=== PATIENT | male | born 1990 | race Caucasian/White ===

== ENCOUNTER 2020-06-18 21:26 | Emergency (ER) | payer OTHER, SELFPAY ==
--- NOTE | 2020-06-18 | ECG_ITS ---
Test Reason : HEART PALPATIONS Blood Pressure : / mmHG Vent. Rate : 083 BPM Atrial Rate : 083 BPM P-R Int : 124 ms QRS Dur : 084 ms QT Int : 374 ms P-R-T Axes : 018 004 011 degrees QTc Int : 439 ms Normal sinus rhythm Normal ECG When compared with ECG of 19-AUG-2019 19:44, Heart rate has decreased Referred By: Kallie Mckeon Electronically Signed By:ARLEEN VIZCAINO MD
[2020-06-18 21:33] VITALS: BP 144/89; PULSE 90; RESP 18; TEMP 36.9; O2SAT 99; BMI 30.1
--- NOTE | 2020-06-18 21:50 | XR_ITS ---
EXAMINATION: XR CHEST CLINICAL INFORMATION: Palpitations COMPARISON: Chest x-ray 10/20/2019 TECHNIQUE: Frontal view of the chest was obtained. FINDINGS: Cardiac silhouette is normal in size. Lungs are well aerated. There is no lobar consolidation. No pleural effusion or pneumothorax. XR/XR chest 1V IMPRESSION: Stable examination demonstrating no acute pulmonary pathology.
--- NOTE | 2020-06-18 21:57 | PC.NURSE ---
XRay at bedside.
--- NOTE | 2020-06-18 22:10 | PC.NURSE ---
Pt ambulating from the waiting room into room 7 with a olmstead/steady gait. Pt is awake and alert, reports difficulty speaking at baseline due to a history of TIAs. Pt explains that he has been having chest discomfort for 2 days, pt stating to this RN that it feels like its in his throat. 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 Pt also reporting dizziness and ear problems that cause him to have an unsteady gait. NSR on tele at this time. IV established, labs obtained and sent. Pt aware of plan of care to CT head and await lab results.
--- NOTE | 2020-06-18 22:10 | PC.NURSE ---
at bedside. IV established, labs obtained. IVF hung per verbal order by .
--- NOTE | 2020-06-18 22:13 | CT_ITS ---
EXAMINATION: CT HEAD WITHOUT CONTRAST CLINICAL INFORMATION: Dizziness COMPARISON: None TECHNIQUE: Contiguous axial imaging was performed from the skull base to vertex without intravenous administration of contrast. This CT examination was performed using dose optimization techniques as appropriate, variously including the following: *Automated exposure control *Adjustment of mA and/or kV according to patient size (this includes techniques or standardized protocols for targeted exams where dose is matched to indication/reason for exam; i.e. extremities or head) *Use of iterative reconstruction technique DLP: 751 mGy-cm FINDINGS: There is no evidence of acute intracranial hemorrhage or territorial infarction. No abnormal mass effect or midline shift is seen. Roy to white matter differentiation is well preserved. No extra-axial fluid collections are identified. The ventricles are normal in size. There is no abnormal attenuation within the brain parenchyma. The osseous structures and soft tissues are normal. Mild polypoid mucosal disease of the right maxillary sinus. CT/CT head/brain wo con IMPRESSION: No acute intracranial pathology.
[2020-06-18 22:17] LABS: Basophils Absolute Auto 0.1 X10*3/uL (0.0-0.2); Basophils Percent Auto 0.7 % (0-2); Eosinophils Absolute Auto 0.2 X10*3/uL (0.0-0.4); Eosinophils Percent Auto 2.3 % (0-4); Hematocrit 44.4 % (42-52); Hemoglobin 14.5 g/dl (14.0-18.0); Imm Gran Abs Auto 0.02 X10*3/uL (0.00-0.03); Imm Gran Pct Auto 0.2 % (0.0-0.4); Lymphocytes Percent Auto 34.4 % (20-40); MANUAL DIFF FLAG NO; Mean Corpuscular HGB Conc 32.7 g/dl (31.0-36.0); Mean Corpuscular Hemoglobin 27.7 pg (27.0-33.0); Mean Corpuscular Volume 84.9 fL (80-98); Mean Platelet Volume 8.9 fL (9.4-12.4); Monocytes Absolute Auto 0.6 X10*3/uL (0.1-1.2); Neutrophils Absolute Auto 4.8 X10*3/uL (2.0-8.3); Neutrophils Percent Auto 55.4 % (45-73); Platelet Count 342 X10*3/uL (160-400); Red Blood Count 5.23 X10*6/uL (4.60-5.80); White Blood Count 8.7 X10*3/uL (4.8-10.8)
[2020-06-18 22:46] LABS: Alanine Aminotransferase 20 U/L (0-40); Albumin Level 4.3 g/dL (3.5-5.0); Alkaline Phosphatase 64 U/L (39-117); Anion Gap 11 (12-20); Aspartate Amino Transferase 25 U/L (5-37); Bilirubin Direct 0.2 mg/dL (0.0-0.5); Bilirubin Total 0.5 mg/dL (0.0-1.0); Blood Urea Nitrogen 9 mg/dL (9-16); Calcium 8.9 mg/dL (8.4-10.2); Carbon Dioxide 30 mmol/L (22-29); Chloride 102 mmol/L (96-108); Creatinine Clr Calc Pharmacy 122.3; Estimated Glomerular Filt Rate > 60; Glucose Random 92 mg/dL (60-115); Lipase 23 U/L (8-78); Potassium 3.8 mmol/l (3.3-5.1); Sodium 139 mmol/L (135-145); Total Protein 7.1 g/dL (6.5-8.0)
[2020-06-18 22:51] LABS: Troponin-I High Sensitivity < 3.5 ng/L (<3.5-35.0)
[2020-06-18 23:13] VITALS: BP 124/71; PULSE 74; RESP 16; O2SAT 100
--- NOTE | 2020-06-19 00:40 | PC.NURSE ---
MD at bedside discussing plan for DC. IV removed, VSS. Awaiting paperwork.
[2020-06-19 00:43] VITALS: BP 141/86; PULSE 62; RESP 16
--- NOTE | 2020-06-19 00:44 | ED.ARRPALP ---
HPI - Arrhythmia/Palpitations General Chief Complaint: Arrhythmia/Palpitations Stated Complaint: Palpitations Time Seen by Provider: 06/18/20 21:50 Source: patient Mode of arrival: ambulatory Limitations: no limitations History of Present Illness HPI narrative: Patient presented with history of feeling palpitation, feeling dizzy, started earlier in the day, patient reported that symptoms has resolved now, describes symptoms as moderate, and resolved now, nothing made it worse or better, no other associated symptoms. Related Data Allergies Allergy/AdvReac Type Severity Reaction Status Date / Time amoxicillin [Prevpac] Allergy Unknown Verified 10/19/19 00:00 clarithromycin [Prevpac] Allergy Unknown Verified 10/19/19 00:00 dexamethasone Allergy Unknown Verified 10/19/19 00:00 esomeprazole [Nexium] Allergy Unknown Verified 10/19/19 00:00 lansoprazole [Prevpac] Allergy Unknown Verified 10/19/19 00:00 omeprazole [From PRILOSEC] Allergy Unknown RASH Unverified 04/26/20 16:08 STERIODS Allergy Intermediate TACHYCARDIA, Uncoded 04/26/20 16:08 DOESNT FEEL WELL From NEXIUM Allergy Unknown ULCERS Uncoded 04/26/20 16:08 From PRILOSEC Allergy Unknown RASH Uncoded 04/26/20 16:08 Review of Systems Review of Systems: All other systems are reviewed and are negative Constitutional: Reports as per HPI and Reports no additional constitutional complaints Eyes: Reports as per HPI and Reports no additional eye complaints Reports system reviewed and no additional complaints, except as documented Cardiovascular: Reports as per HPI and Reports no additional cardiovascular complaints Respiratory: Reports as per HPI and Reports no additional respiratory complaints Gastrointestinal: Reports as per HPI and Reports no additional gastrointestinal complaints Genitourinary: Reports no additional female genitourinary complaints Musculoskeletal: Reports no additional musculoskeletal complaints Skin/Breast: Reports system reviewed and no additional complaints, except as docu Psychiatric: Reports no additional psychiatric complaints Endocrine: Reports no additional endocrine complaints Hematologic/Lymphatic: Reports no additional hematologic/lymphatic complaints Allergic/Immunologic: Reports no additional allergic/immunologic complaints Reports system reviewed and no additional complaints, except as documented and Reports Abnormal speech present [facility] Past Medical History Medical History Ear problem TIA (transient ischemic attack) Social History Social History Advance Directives: No Advance Directives Information Provided: Yes Physical Exam Vital Signs: Vital Signs: Last Vital Signs Temp 98.4 F 06/18/20 21:33 Pulse 62 06/19/20 00:43 Resp 16 06/19/20 00:43 BP 141/86 H 06/19/20 00:43 Pulse Ox 100 06/18/20 23:13 Body Mass Index 30.1 Vital signs have been reviewed as normal and appeared to be correct. Blood pressure on high range. Heart rate normal. Respiration rate normal. Temperature normal. Oxygen saturation normal. Appearance: Alert. Oriented X3. No acute distress. Head: Normal external exam. Normocephalic. Atraumatic. No Valadez signs noted. No raccoon eyes noted Eyes: PERRLA. EOMI. Conjunctiva and sclera normal. Eyelids normal. ENT: EAC normal. TM's Normal. Pharynx normal. Uvula midline. Moist mucous membranes. No trismus noted. No drooling noted. No muffled voice noted. Neck: Normal inspection. Neck supple. FROM. No adenopathy. Thyroid Normal. No meningeal signs. No neck mass noted. CVS: Normal heart rate and rhythm. Heart sound normal. No murmurs noted. Pulses normal throughout. Respiratory: No respiratory distress. Painless inspiration. Breath sounds normal. No wheezes/rales/rhonchi noted. Chest nontender. No accessory muscle usage noted or decreased air movement noted. Abdomen: Soft and nontender. Bowel sounds normal in all 4 quadrants. No distention noted. No organomegaly noted. No visible injury noted. Back: No CVA tenderness. Full range of motion noted. Skin: Skin warm and dry. Normal skin color. Normal skin turgor. No rashes/lesions/lacerations noted. Extremities: No lower extremity edema. Extremities exhibit normal range of motion. Extremities nontender. Neuro: Oriented X 3. No motor deficit. No sensory deficit. Reflexes normal. MDM - Arrhythmia/Palpitations MDM Narrative Medical decision making narrative: Assessment and plan. 30-year-old male otherwise healthy history of TIAs, presented with dizziness and palpitation that resolved in the emergency department, patient had unremarkable EKG/CT of the head/chest x-ray/labs and electrolytes. No more symptoms in the emergency department, ENT exam is unremarkable, neuro exam also is unremarkable. Will discharge to follow-up with PCP. Lab Data Attestation: I reviewed the patient's lab results. Result diagrams: 06/18/20 22:08 06/18/20 22:08 Labs: Lab Results 06/18/20 06/18/20 06/18/20 Range/Units 22:08 22:08 22:08 WBC 8.7 (4.8-10.8) X10*3/uL RBC 5.23 (4.60-5.80) X10*6/uL Hgb 14.5 (14.0-18.0) g/dl Hct 44.4 (42-52) % MCV 84.9 (80-98) fL MCH 27.7 (27.0-33.0) pg MCHC 32.7 (31.0-36.0) g/dl RDW 13.0 (11.0-16.0) % Plt Count 342 (160-400) X10*3/uL MPV 8.9 L (9.4-12.4) fL Immature Gran % (Auto) 0.2 (0.0-0.4) % Neut % (Auto) 55.4 (45-73) % Lymph % (Auto) 34.4 (20-40) % Glasscock % (Auto) 7.0 (2-11) % Eos % (Auto) 2.3 (0-4) % Baso % (Auto) 0.7 (0-2) % Lymph # (Auto) 3.0 (1.2-4.9) X10*3/uL Glasscock # (Auto) 0.6 (0.1-1.2) X10*3/uL Eos # (Auto) 0.2 (0.0-0.4) X10*3/uL Baso # (Auto) 0.1 (0.0-0.2) X10*3/uL Abs Immat Gran (auto) 0.02 (0.00-0.03) X10*3/uL Absolute Neuts (auto) 4.8 (2.0-8.3) X10*3/uL Absolute Nucleated RBC 0.000 (0.0-0.012) X10*3/uL Nucleated RBC % (auto) 0.0 (0.0-0.2) /100WBC Sodium 139 (135-145) mmol/L Potassium 3.8 (3.3-5.1) mmol/l Chloride 102 (96-108) mmol/L Carbon Dioxide 30 H (22-29) mmol/L Anion Gap 11 L (12-20) BUN 9 (9-16) mg/dL Creatinine 0.97 (0.5-1.4) mg/dL Estim Creat Clear Calc 122.3 Estimated GFR > 60 Random Glucose 92 (60-115) mg/dL Calcium 8.9 (8.4-10.2) mg/dL Magnesium 2.0 (1.6-2.6) mg/dL Total Bilirubin 0.5 (0.0-1.0) mg/dL Direct Bilirubin 0.2 (0.0-0.5) mg/dL AST 25 (5-37) U/L ALT 20 (0-40) U/L Alkaline Phosphatase 64 (39-117) U/L Troponin I High Sens < 3.5 (<3.5-35.0) ng/L Total Protein 7.1 (6.5-8.0) g/dL Albumin 4.3 (3.5-5.0) g/dL Lipase 23 (8-78) U/L Imaging Data CT scan - head: Radiologist's impression: No acute pathology. Chest x-ray: Radiologist's impression: No acute pathology. ECG Data Interpretation: Normal sinus rhythm at 83 beats per minutes, normal intervals, normal axis, diffuse flattening/inversion of nonspecific T-wave changes. Discharge Plan Discharge Clinical Impression: Palpitations, Dizziness Patient Disposition: Home, Self-Care Instructions: Heart Palpitations (ED), Dizziness (ED) Referrals: Physician,Unknown [Primary Care Provider] - 2 days
== END 2020-06-19 01:08 | disposition home or self-care (01) ==
PROVIDERS: Emergency Provider Emergency Medicine
DX: R00.2 Palpitations (principal); R42 Dizziness and giddiness
CPT/HCPCS: 36415; 70450; 71045; 80048; 80076; 83690; 83735; 84484; 85025; 93005; 99284

== ENCOUNTER 2020-08-21 17:23 | Emergency (ER) | payer OTHER, SELFPAY ==
--- NOTE | 2020-08-21 17:51 | XR_ITS ---
EXAMINATION: XR CHEST CLINICAL INFORMATION: Cough. COMPARISON: Chest 06/18/2020 TECHNIQUE: Frontal view of the chest was obtained. FINDINGS: No significant abnormality is noted involving the heart, lungs, mediastinum, bony thorax or soft tissues. XR/XR chest 1V IMPRESSION: Unremarkable chest examination.
[2020-08-21 18:11] VITALS: BP 134/91; PULSE 87; RESP 16; TEMP 37.2; O2SAT 98; BMI 34.9
[2020-08-21 19:47] LABS: Influenza A PCR NEGATIVE (Negative); Influenza B PCR NEGATIVE (Negative); Resp Syncy Virus RNA Qual PCR NEGATIVE (Negative); SARS COV2 PCR INHOUSE NEGATIVE (Negative)
--- NOTE | 2020-08-21 20:35 | ED.URI ---
HPI - URI/Sore Throat General Chief Complaint: Upper Respiratory Symptoms Stated Complaint: COUGH Time Seen by Provider: 08/21/20 17:50 History of Present Illness HPI Narrative: Patient complains of 2 weeks of runny nose and cough the cough is dry and not productive of sputum, no shortness of breath no fever no chills Related Data Previous Rx's Medication Instructions Recorded doxycycline hyclate 100 mg PO BID 7 Days #14 cap 08/21/20 Allergies Allergy/AdvReac Type Severity Reaction Status Date / Time amoxicillin [Prevpac] Allergy Unknown Verified 10/19/19 00:00 clarithromycin [Prevpac] Allergy Unknown Verified 10/19/19 00:00 dexamethasone Allergy Unknown Verified 10/19/19 00:00 esomeprazole [Nexium] Allergy Unknown Verified 10/19/19 00:00 lansoprazole [Prevpac] Allergy Unknown Verified 10/19/19 00:00 omeprazole [From PRILOSEC] Allergy Unknown RASH Unverified 04/26/20 16:08 STERIODS Allergy Intermediate TACHYCARDIA, Uncoded 04/26/20 16:08 DOESNT FEEL WELL From NEXIUM Allergy Unknown ULCERS Uncoded 04/26/20 16:08 From PRILOSEC Allergy Unknown RASH Uncoded 04/26/20 16:08 Review of Systems Review of Systems: Positive for cough and nasal congestion There is no fever no chills no dizziness no weakness no shortness of breath no chest pain no sore throat no abdominal pain no nausea no vomiting no diarrhea no skin rash Yes all other systems are reviewed and are negative [facility] Past Medical History Attestation statement: The following information was validated with the patient. [facility] Narrative: Patient has had pneumonia multiple times in the past Source: nursing notes reviewed Medical History Ear problem TIA (transient ischemic attack) Social History Social History Advance Directives: No Advance Directives Information Provided: No Physical Exam Vital Signs: Vital Signs: Last Vital Signs Temp 98.9 F 08/21/20 18:11 Pulse 87 08/21/20 18:11 Resp 16 08/21/20 18:11 BP 134/91 H 08/21/20 18:11 Pulse Ox 98 01/12/21 18:11 Body Mass Index 34.9 General appearance is no distress There is no sinus tenderness The neck is supple The chest is clear to auscultation, no respiratory distress Clear to auscultation bilaterally with full symmetric equal breath sounds The heart rate and rhythm regular no murmur Abdomen soft nontender Skin no rash Course Course Course Narrative: COVID test was negative, chest x-ray was negative Patient was treated with antibiotic for bronchitis due to his past history of multiple episodes of pneumonia MDM - URI/Sore Throat Lab Data Labs: Lab Results 08/21/20 Range/Units 18:20 Coronavirus (PCR) NEGATIVE (Negative) Influenza Type A (PCR) NEGATIVE (Negative) Influenza Type B (PCR) NEGATIVE (Negative) RSV RNA Qual (PCR) NEGATIVE (Negative) Discharge Plan Discharge Clinical Impression: Bronchitis Patient Disposition: Home, Self-Care Additional Instructions: COVID test was negative and x-ray was normal We are treating with antibiotics as you have had similar symptoms with pneumonia in the past COVID testing misses many cases so best plan is do not go to work until COVID testing is negative and all symptoms are better Return any time any worse condition or concerns Prescriptions: New doxycycline hyclate 100 mg capsule 100 mg PO BID 7 Days Qty: 14 RF: 0 Stand Alone Forms: Work/School Release
== END 2020-08-21 21:21 | disposition home or self-care (01) ==
PROVIDERS: Physician Assistant Medical; Emergency Provider Internal Medicine; PCP Internal Medicine
DX: J20.9 Acute bronchitis, unspecified (principal); R05 Cough; Z20.828 Contact with and (suspected) exposure to other viral communicable diseases; Z79.899 Other long term (current) drug therapy
CPT/HCPCS: 0241U; 36415; 71045; 99283; 99284

== ENCOUNTER 2020-10-24 18:11 | Emergency (ER) | payer OTHER, SELFPAY ==
--- NOTE | 2020-10-24 | ECG_ITS ---
Test Reason : ELECTRIC SHOCK Blood Pressure : / mmHG Vent. Rate : 090 BPM Atrial Rate : 090 BPM P-R Int : 118 ms QRS Dur : 078 ms QT Int : 348 ms P-R-T Axes : 020 011 017 degrees QTc Int : 425 ms Normal sinus rhythm with sinus arrhythmia Normal ECG When compared with ECG of 18-JUN-2020 21:41, No significant change was found Referred By: Kallie Mckeon Electronically Signed By:SHEELA PORTER MD
[2020-10-24 18:16] VITALS: BP 152/109; PULSE 103; RESP 17; TEMP 37; O2SAT 100; BMI 35.7
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
[2020-10-24 19:30] LABS: COVID-19 Test Negative (Negative); IDNOW Serial# 9DD0AD1C
== END 2020-10-24 19:18 | disposition home or self-care (01) ==
PROVIDERS: Emergency Provider Emergency Medicine; PCP Internal Medicine
DX: T75.4XXA Electrocution, initial encounter (principal); W86.8XXA Exposure to other electric current, initial encounter; Z20.822 Contact with and (suspected) exposure to COVID-19; Y93.H3 Activity, building and construction; Y92.219 Unspecified school as the place of occurrence of the external cause; Y99.0 Civilian activity done for income or pay; Z86.73 Personal history of transient ischemic attack (TIA), and cerebral infarction without residual deficits
CPT/HCPCS: 36415; 87635; 93005; 99283; 99284

== ENCOUNTER 2021-09-20 12:00 | Emergency (ER) | payer OTHER, SELFPAY ==
[2021-09-20 14:03] VITALS: BP 138/97; PULSE 81; RESP 18; TEMP 36.9; O2SAT 100; BMI 37.1
--- NOTE | 2021-09-20 14:07 | ECG_ITS ---
Test Reason : PALPITATIONS Blood Pressure : / mmHG Vent. Rate : 077 BPM Atrial Rate : 077 BPM P-R Int : 126 ms QRS Dur : 084 ms QT Int : 368 ms P-R-T Axes : 019 011 016 degrees QTc Int : 416 ms Normal sinus rhythm with sinus arrhythmia Normal ECG When compared with ECG of 24-OCT-2020 18:48, No significant change was found Referred By: Juhi Souza Electronically Signed By:Balwinder Zhang
--- NOTE | 2021-09-20 14:24 | ED.ARRPALP ---
HPI - Arrhythmia/Palpitations General Chief Complaint: Arrhythmia/Palpitations Stated Complaint: palpations Time Seen by Provider: 09/20/21 14:07 Source: patient Mode of arrival: ambulatory Limitations: no limitations History of Present Illness HPI narrative: 31 yo male with history of fibromyalgia, stutter, TIA, GERD, recurrent heart palpitations presents to the ER with increased frequency in his chest palpitations for the last 5-6 days. He reports it feels like his heart is skipping a beat and he has the sensation to cough when this happens. He reports it only lasts seconds and is very brief but is very bothersome. He denies any chest pain, dizziness, syncope or pre-syncope. He has a history of similar episodes and has been seen here for this before. His PCP has also seen him for his. He was told that it may be due to a problem with his esophagus and his esophagus isn't working right, he has had multiple scopes. He reports occasional heartburn, no N/V/D. He drinks 1-2 sodas per day, no regular meds, no supplements, drugs or ETOH use. MD complaint: palpitations Onset (ago): unknown Duration: intermittent Severity: moderate Context: occurred during rest Associated symptoms: anxiety and cough Related Data Previous Rx's Medication Instructions Recorded doxycycline hyclate 100 mg capsule 100 mg PO BID 7 Days #14 cap 08/21/20 Allergies Allergy/AdvReac Type Severity Reaction Status Date / Time amoxicillin [Prevpac] Allergy Unknown Unknown Verified 09/20/21 14:06 clarithromycin [Prevpac] Allergy Unknown Unknown Verified 09/20/21 14:06 dexamethasone Allergy Unknown Unknown Verified 09/20/21 14:06 esomeprazole [Nexium] Allergy Unknown Unknown Verified 09/20/21 14:06 lansoprazole [Prevpac] Allergy Unknown Unknown Verified 09/20/21 14:06 omeprazole [From PRILOSEC] Allergy Unknown RASH Unverified 04/26/20 16:08 STERIODS Allergy Intermediate TACHYCARDIA, Uncoded 04/26/20 16:08 DOESNT FEEL WELL From NEXIUM Allergy Unknown ULCERS Uncoded 04/26/20 16:08 From PRILOSEC Allergy Unknown RASH Uncoded 04/26/20 16:08 Review of Systems Review of Systems: Constitutional: No Fever, No Chills ENT/Mouth: No sore throat, No Swallowing Difficulty Cardiovascular: No Chest Pain, No SOB, No Orthopnea, No Edema, +Palpitations Respiratory: No Cough, No Sputum, No Wheezing, No dyspnea Gastrointestinal: No Nausea, No Vomiting, No abdominal Pain Musculoskeletal: No joint pain, No Myalgias Skin: No Skin Lesions, No rash Neuro: No Weakness, No Numbness, No Dizziness, No Headache Psych: + Anxiety/Panic, No Depression Heme/Lymph: No Bruising, No Lymphadenopathy PMFSH Past Medical History Medical History Ear problem TIA (transient ischemic attack) Social History Social History Alcohol intake: never Advance Directives: No Advance Directives Information Provided: No Physical Exam Vital Signs: Vital Signs: Last Vital Signs Temp 98.5 F 09/20/21 14:03 Pulse 81 09/20/21 14:03 Resp 18 09/20/21 14:03 BP 138/97 H 09/20/21 14:03 Pulse Ox 100 09/20/21 14:03 BMI result Body Mass Index 37.1 Appearance: Alert. Oriented X3. No acute distress. Severe stutter present Eyes: Pupils equal, round and reactive to light. ENT: Pharynx normal. Neck: Normal inspection. Neck supple. CVS: Normal heart rate and rhythm. Pulses normal. Respiratory: No respiratory distress. Breath sounds normal. Abdomen: Soft and nontender. +BS x4 Skin: Skin warm and dry. Normal skin color. Normal skin turgor. No rashes. Extremities: No lower extremity edema. No calf pain Neuro: Oriented X 3. No motor deficit. No sensory deficit. Course Course Course Narrative: 31-year-old male presents to the ER for evaluation of intermittent palpitations, on and off for several years. He reports increase in frequency this last week. He denies any substance use or medication use. He denies any chest pain shortness of breath,syncope, or presyncope. EKG showing sinus rhythm with sinus arrhythmia, no PVCs noted. He has not had lab work done and ?long time? so will check basic labs, electrolytes and TSH. Reevaluation(s) Reevaluation #1: Lab workup was unremarkable. Etiology of his palpitations are unclear, possible esophageal spasm. He has had a reported 23 EGDs for evaluation of his esophagus and he is not on any medications for GERD, he reports symptoms a few times a week. Encouraged him to start a trial of a PPI to see if this will help manage his symptoms. Also encouraged him to follow-up with a registered nurse fetal for possible Holter monitor. He has had the symptoms for years and would like to know if there cardiac or GI related. He is nontoxic and findings today were unremarkable. He is stable for discharge home with outpatient follow-up. MDM - Arrhythmia/Palpitations Differential Diagnosis Differential diagnosis: Likely palpitations, anxiety, sinus tachycardia, artial fibrillation, artial flutter, ventricular premature beats, supraventricular tachycardia, ventricular tachycardia and WPW Medical Records Attestation: I reviewed the patient's medical records. Lab Data Attestation: I reviewed the patient's lab results. Result diagrams: 09/20/21 15:23 09/20/21 15:23 Labs: Lab Results 09/20/21 09/20/21 Range/Units 15:23 15:23 WBC 9.3 (4.8-10.8) X10*3/uL RBC 5.70 (4.60-5.80) X10*6/uL Hgb 16.0 (14.0-18.0) g/dl Hct 47.3 (42.0-52.0) % MCV 83.0 (80.0-98.0) fL MCH 28.1 (27.0-33.0) pg MCHC 33.8 (31.0-36.0) g/dl RDW 13.1 (11.0-16.0) % Plt Count 342 (160-400) X10*3/uL MPV 8.5 L (9.4-12.4) fL Immature Gran % (Auto) 0.2 (0.0-0.4) % Neut % (Auto) 64.1 (45-73) % Lymph % (Auto) 26.3 (20-40) % [place] % (Auto) 7.4 (2-11) % Eos % (Auto) 1.5 (0-4) % Baso % (Auto) 0.5 (0-2) % Lymph # (Auto) 2.4 (1.2-4.9) X10*3/uL [place] # (Auto) 0.7 (0.1-1.2) X10*3/uL Eos # (Auto) 0.1 (0.0-0.4) X10*3/uL Baso # (Auto) 0.1 (0.0-0.2) X10*3/uL Abs Immat Gran (auto) 0.02 (0.00-0.03) X10*3/uL Absolute Neuts (auto) 5.9 (2.0-8.3) x10*3/uL Absolute Nucleated RBC 0.000 (0.0-0.012) X10*3/uL Nucleated RBC % (auto) 0.0 (0.0-0.2) /100WBC Sodium 138 (135-145) mmol/L Potassium 4.8 (3.3-5.1) mmol/L Chloride 102 (96-108) mmol/L Carbon Dioxide 28 (22-29) mmol/L Anion Gap 13 (12-20) BUN 9 (9-16) mg/dL Creatinine 1.09 (0.5-1.4) mg/dL Estim Creat Clear Calc 112.1 Estimated GFR > 60 Random Glucose 83 (60-115) mg/dL Calcium 10.0 D (8.4-10.2) mg/dL Magnesium 2.1 (1.6-2.6) mg/dL TSH 1.65 (0.32-4.0) uIU/mL ECG Data Attestation: I personally reviewed and interpreted this ECG as follows: ECG interpretation date: 09/20/21 Prior ECG tracings: available for review Interpretation: Normal sinus rhythm with sinus arrhythmia, heart rate 77 beats per minute, normal FL interval 126 MS, normal QTC, no ST segment elevations or depressions. Critical Care Time Critical Care Time Critical Care Time: No Discharge Plan Discharge Clinical Impression: Palpitations Patient Disposition: Home, Self-Care Instructions: Heart Palpitations (DC) Additional Instructions: Your lab workup today was normal Your EKG was normal Recommend following up with Cardiology for evaluation of possible Holter monitor to further evaluate your palpitations Follow up with your primary care doctor as well If you develop new or worsening symptoms call 911 or come back to the ER for further evaluation. Prescriptions: No Action doxycycline hyclate 100 mg capsule 100 mg PO BID 7 Days Qty: 14 0RF Referrals: Warren Paniagua MD [Physician] - 2 weeks (palpitations)
[2021-09-20 15:33] LABS: MANUAL DIFF FLAG NO
[2021-09-20 15:34] LABS: Basophils Absolute Auto 0.1 X10*3/uL (0.0-0.2); Basophils Percent Auto 0.5 % (0-2); Eosinophils Absolute Auto 0.1 X10*3/uL (0.0-0.4); Eosinophils Percent Auto 1.5 % (0-4); Hematocrit 47.3 % (42.0-52.0); Imm Gran Abs Auto 0.02 X10*3/uL (0.00-0.03); Imm Gran Pct Auto 0.2 % (0.0-0.4); Lymphocytes Absolute Auto 2.4 X10*3/uL (1.2-4.9); Lymphocytes Percent Auto 26.3 % (20-40); Mean Corpuscular HGB Conc 33.8 g/dl (31.0-36.0); Mean Corpuscular Hemoglobin 28.1 pg (27.0-33.0); Mean Platelet Volume 8.5 fL (9.4-12.4); Monocytes Absolute Auto 0.7 X10*3/uL (0.1-1.2); Monocytes Percent Auto 7.4 % (2-11); Neutrophils Absolute Auto 5.9 x10*3/uL (2.0-8.3); Neutrophils Percent Auto 64.1 % (45-73); Platelet Count 342 X10*3/uL (160-400); Red Cell Distribution Width 13.1 % (11.0-16.0); White Blood Count 9.3 X10*3/uL (4.8-10.8)
[2021-09-20 15:53] LABS: Anion Gap 13 (12-20); Blood Urea Nitrogen 9 mg/dL (9-16); Carbon Dioxide 28 mmol/L (22-29); Chloride 102 mmol/L (96-108); Creatinine Clr Calc Pharmacy 112.1; Estimated Glomerular Filt Rate > 60; Glucose Random 83 mg/dL (60-115); Magnesium 2.1 mg/dL (1.6-2.6); Potassium 4.8 mmol/L (3.3-5.1); Sodium 138 mmol/L (135-145)
[2021-09-20 16:13] LABS: TSH reflex Free T4 1.65 uIU/mL (0.32-4.0)
== END 2021-09-20 17:35 | disposition home or self-care (01) ==
PROVIDERS: Physician Assistant; Emergency Provider Emergency Medicine Emergency Medical Services; PCP Internal Medicine
DX: R00.2 Palpitations (principal); Z86.73 Personal history of transient ischemic attack (TIA), and cerebral infarction without residual deficits
CPT/HCPCS: 36415; 80048; 83735; 84443; 85025; 93005; 99283

== ENCOUNTER 2022-01-18 12:45 | Emergency (ER) | payer OTHER, SELFPAY ==
--- NOTE | ~2022-01-18 | CT_ITS ---
EXAMINATION: CT THORACIC AND LUMBAR SPINE WITHOUT CONTRAST. CLINICAL INFORMATION: Pain weakness COMPARISON: No prior CT scan available for comparison. TECHNIQUE: Helical non-contrast CT images were obtained through the lumbar spine and 1.25 and 2.5 mm axial reconstructions were reviewed along with sagittal and coronal MPRs. This CT examination was performed using dose optimization techniques as appropriate, variously including the following: *Automated exposure control *Adjustment of mA and/or kV according to patient size (this includes techniques or standardized protocols for targeted exams where dose is matched to indication/reason for exam; i.e. extremities or head) *Use of iterative reconstruction technique CONTRAST: None. DLP: 979 mGy-cm FINDINGS: FRACTURES: The vertebral body of T10 and T11 are congenitally fused. All other vertebrae are normal maintaining normal height and alignments. Vertebral pedicles are intact at all included levels. No CT evidence of bone lesion. VERTEBRAL ALIGNMENT: Thoracolumbar vertebrae maintain proper alignment's. SOFT TISSUE: Paravertebral soft tissues unremarkable, incidental finding was made of left thyroid nodule measure 4 cm, this may require further evaluation with ultrasound. DISCS: Intervertebral disc spaces at all levels are preserved, vertebral body of T11, T12 and L1 are partially fused. This is likely congenital. L1-L2: There is no CT evidence of significant central or foraminal stenosis. L2-L3: There is no CT evidence of significant central or foraminal stenosis. L3-L4: There is no CT evidence of significant central or foraminal stenosis. L4-L5: There is no CT evidence of significant central or foraminal stenosis. L5-S1: There is no CT evidence of significant central or foraminal stenosis. OTHER FINDINGS: Surrounding structures otherwise normal. CT/CT thoracic spine wo con IMPRESSION: *Congenital partial fusion of T10, T11 and T12. *Cervical lumbar spine otherwise is intact. No fracture. Intervertebral disc spaces are otherwise preserved. *Incidental finding was made of prominent left thyroid, POSSIBLE 4 CM LEFT THYROID MASS, attention to follow-up thyroid ultrasound evaluation is warranted. *If patient remain symptomatic would recommend correlation with follow-up contrast enhanced MRI to assess the spinal cord for possible demyelinating disease and/or soft tissue derangements including disc herniation otherwise not visible on CT scan.. (Referring physician staff is being called, to be alerted of the above findings and recommendations.) AJ
[2022-01-18 12:49] VITALS: BP 198/110; PULSE 99; RESP 18; TEMP 37.3; O2SAT 100; BMI 37.1
[2022-01-18 13:16] VITALS: BP 163/126; PULSE 92; RESP 18; TEMP 36.8; O2SAT 98
[2022-01-18 14:10] LABS: MANUAL DIFF FLAG NO
[2022-01-18] MEDS: oxyCODONE HCl Immed Release 5 MG TABLET PO (14:12)
[2022-01-18] MEDS: Acetaminophen 325 MG TABLET 650 MG PO (14:12)
[2022-01-18 14:14] LABS: Appearance Urine CLEAR; Color Urine YELLOW; Glucose Urine UA NEG (NEG); Leukocyte Esterase Urine NEG (NEG); Nitrite Urine NEG (NEG); Specific Gravity - Urine <= 1.005 (1.005-1.025); Urine Blood NEG (NEG); Urine Ketones NEG (NEG); Urine Protein NEG (NEG-TRACE)
--- NOTE | 2022-01-18 14:21 | ED.GENADULT ---
HPI - General Adult General Chief complaint: Back Pain/Injury Stated complaint: leg issues, back pain Time Seen by Provider: 01/18/22 13:16 Source: patient Mode of arrival: ambulatory History of Present Illness HPI narrative: 31-year-old male with a past medical history of TIA, verbal stutter, presenting to the ED complaining of mid/low back pain radiating down bilateral legs and to abdomen x months. Patient reports legs give out intermittently causing patient to fall, denies any head trauma/LOC during incidence. Patient unsure if legs giving out is due to weakness or pain. Denies headache, lightheadedness/dizziness, CP/SOB, numbness, tingling, known trauma, fever, IVDA Onset (ago): month(s) Related Data Previous Rx's Medication Instructions Recorded doxycycline hyclate 100 mg capsule 100 mg PO BID 7 days #14 caps 08/21/20 cyclobenzaprine 5 mg tablet 5 mg PO Q8H PRN pain (scale score 01/18/22 7-10) 5 days #14 tabs hydrocodone 5 mg-acetaminophen 325 1 tab PO Q8H PRN pain, severe 3 01/18/22 mg tablet days #5 tabs lidocaine 5 % topical patch 1 patch topical DAILY PRN pain #30 01/18/22 (Lidoderm) ea naproxen 500 mg tablet 500 mg PO BID PRN pain 10 days #20 01/18/22 tabs Allergies Allergy/AdvReac Type Severity Reaction Status Date / Time clarithromycin [Prevpac] Allergy Unknown Unknown Verified 01/18/22 12:54 dexamethasone Allergy Unknown Unknown Verified 01/18/22 12:54 esomeprazole [Nexium] Allergy Unknown Unknown Verified 01/18/22 12:54 lansoprazole [Prevpac] Allergy Unknown Unknown Verified 01/18/22 12:54 omeprazole [From PRILOSEC] Allergy Unknown RASH Verified 01/18/22 12:54 STERIODS Allergy Intermediate TACHYCARDIA, Uncoded 04/26/20 16:08 DOESNT FEEL WELL From NEXIUM Allergy Unknown ULCERS Uncoded 04/26/20 16:08 From PRILOSEC Allergy Unknown RASH Uncoded 04/26/20 16:08 Review of Systems Review of Systems: Constitutional: No Weight loss, No Fever, No Chills, No Fatigue, No Malaise ENT/Mouth: No Ear Pain, No sore throat, No Rhinorrhea, No Swallowing Difficulty Eyes: No Eye Pain, No Swelling, No Redness, No Vision Changes Cardiovascular: No Chest Pain, No SOB, No Orthopnea, No Edema, No Palpitations Respiratory: No Cough, No Sputum, No Dyspnea Gastrointestinal: No Nausea, No Vomiting, No Diarrhea, No Constipation, No Abdominal pain Genitourinary: No Dysuria, No Urinary Frequency, No Hematuria, No Urinary Incontinence/retention, No Flank Pain Musculoskeletal: + joint pain, No Myalgias, No Joint Swelling Skin: No Skin Lesions, No rash Neuro: + Weakness, No Numbness, No Paresthesias, No Loss of Consciousness, No Dizziness, No Headache Yes all other systems are reviewed and are negative Neurologic: Denies Abnormal speech present and Denies Sensory deficit (Neuro) [facility] Past Medical History Attestation statement: The following information was validated with the patient. Medical History Ear problem TIA (transient ischemic attack) Social History Social History Alcohol intake: never Advance Directives: No Advance Directives Information Provided: No Physical Exam ED Vital Signs: Vital Signs - 24 hr 01/18/22 12:49 01/18/22 13:16 01/18/22 16:39 Temperature 99.1 F 98.3 F Pulse Rate 99 92 77 Respiratory Rate 18 18 18 Blood Pressure 198/110 H 163/126 H 139/91 H Pulse Oximetry 100 98 99 Oxygen Delivery Method Room Air Room Air Room Air BMI result Body Mass Index 37.1 Const General: cooperative, healthy appearing, no acute distress, alert and awake Orientation/consciousness: patient oriented x3 Limitations: no limitations [facility] Head: Yes normal to inspection and Yes atraumatic Ears: hearing grossly normal bilaterally General nose exam: Normal external nose present Face and sinus: Yes normal facial exam Eyes General: appearance normal, both eyes and all related structures EOM: EOMs intact bilaterally Neck Neck: Yes normal visual inspection and Yes no meningeal signs Resp Effort & Inspection: normal respiratory effort and no respiratory distress Auscultation: clear to auscultation bilaterally Cardio Rate: regular rate Heart sounds: S1 normal heart sound present and S2 normal heart sound present Peripheral pulses: dorsalis pedis present GI Inspection: Yes normal to inspection Palpation (GI): Soft to palpation, nontender, no guarding and not rigid General: Yes no CVA tenderness Back/Spine/Pelvis Other: +midline thoracic spinous ttp. No swelling/cellulitis/streaking. No fluctuance or induration Back: no CVA tenderness Skin Rashes: no rashes Wounds: no wounds Neuro General: patient oriented x3, gait normal, tone normal, moves all extremities, no meningeal signs, no focal motor deficits and CN's II-XI intact bilaterally Cognition (Neuro): normal cognition Speech: No Abnormal speech present Gait exam (Neuro): Normal gait present and not ataxic Motor exam (neuro): 5/5 motor strength present throughout Sensory Exam: Normal double simultaneous stimulation for sensation; No Sensory deficit (Neuro) Deep tendon reflexes (DTR's): Right patellar reflex intensity grade: 2+ (WNL) and Left patellar reflex intensity grade: 2+ (WNL) Extrem General: Yes normal to inspection, Yes no pedal edema and Yes no calf tenderness Course Course Course Narrative: Labs unremarkable. CT thoracic spine wo con / CT lumbar spine wo con IMPRESSION: *Congenital partial fusion of T10, T11 and T12. ? *Cervical lumbar spine otherwise is intact. No fracture. Intervertebral disc spaces are otherwise preserved. ? *Incidental finding was made of prominent left thyroid, POSSIBLE 4 CM LEFT THYROID MASS, attention to follow-up thyroid ultrasound evaluation is warranted. ? *If patient remain symptomatic would recommend correlation with follow-up contrast enhanced MRI to assess the spinal cord for possible demyelinating disease and/or soft tissue derangements including disc herniation otherwise not visible on CT scan.. ? (Referring physician staff is being called, to be alerted of the above findings and recommendations.) >> results discussed with patient including needed follow-up with PCP for thyroid ultrasound/biopsy as well as back MRI. Stressed importance of follow-up, discussed worrisome signs and symptoms and strict return precautions, verbalized understanding and feel safe for discharge home -blood pressure improved without intervention Medical Decision Making MDM Narrative Medical decision making narrative: 31-year-old male with a past medical history of TIA, verbal stutter, presenting to the ED complaining of mid/low back pain radiating down bilateral legs and to abdomen x months. Patient reports legs give out intermittently causing patient to fall. On exam hypertensive which is suspected to be from pain, thoracic midline spinous tenderness, no appreciable cellulitis/abscess. No focal neuro deficits, ambulating with steady gait, no appreciable weakness. Concern for MSK pain vs fracture vs neuropathy vs myopathy. Lower concern for demyelinating process. Low concern for hypertensive emergency /urgency at this time plan: Labs, UA, thoracic/ lumbar back CT, pain control Medical Records Medical records reviewed: Yes I reviewed the patient's medical records. Lab Data Lab results reviewed: Yes I reviewed the patient's lab results. Result diagrams: 01/18/22 14:05 01/18/22 14:05 Labs: Lab Results 01/18/22 01/18/22 01/18/22 Range/Units 14:05 14:05 14:05 WBC 7.6 (4.8-10.8) X10*3/uL RBC 5.38 (4.60-5.80) X10*6/uL Hgb 15.5 (14.0-18.0) g/dl Hct 45.0 (42.0-52.0) % MCV 83.6 (80.0-98.0) fL MCH 28.8 (27.0-33.0) pg MCHC 34.4 (31.0-36.0) g/dl RDW 13.2 (11.0-16.0) % Plt Count 351 (160-400) X10*3/uL MPV 9.0 L (9.4-12.4) fL Immature Gran % (Auto) 0.7 H (0.0-0.4) % Neut % (Auto) 60.6 (45-73) % Lymph % (Auto) 29.0 (20-40) % [place] % (Auto) 6.8 (2-11) % Eos % (Auto) 2.1 (0-4) % Baso % (Auto) 0.8 (0-2) % Lymph # (Auto) 2.2 (1.2-4.9) X10*3/uL [place] # (Auto) 0.5 (0.1-1.2) X10*3/uL Eos # (Auto) 0.2 (0.0-0.4) X10*3/uL Baso # (Auto) 0.1 (0.0-0.2) X10*3/uL Abs Immat Gran (auto) 0.05 H (0.00-0.03) X10*3/uL Absolute Neuts (auto) 4.6 (2.0-8.3) x10*3/uL Absolute Nucleated RBC 0.000 (0.0-0.012) X10*3/uL Nucleated RBC % (auto) 0.0 (0.0-0.2) /100WBC ESR 2 (0-15) MM/HR Sodium 138 (135-145) mmol/L Potassium 4.3 (3.3-5.1) mmol/L Chloride 103 (96-108) mmol/L Carbon Dioxide 29 (22-29) mmol/L Anion Gap 10 L (12-20) BUN 9 (9-16) mg/dL Creatinine 0.99 (0.5-1.4) mg/dL Estim Creat Clear Calc 123.4 Estimated GFR > 60 Random Glucose 94 (60-115) mg/dL Calcium 9.7 (8.4-10.2) mg/dL Magnesium 2.2 (1.6-2.6) mg/dL Total Bilirubin 0.6 (0.0-1.0) mg/dL Direct Bilirubin 0.2 (0.0-0.5) mg/dL AST 18 (5-37) U/L ALT 20 (0-40) U/L Alkaline Phosphatase 61 (39-117) U/L Total Creatine Kinase 157 (38-174) U/L C-Reactive Protein 0.16 (< or = 0.50) mg/dL Total Protein 7.0 (6.5-8.0) g/dL Albumin 4.2 (3.5-5.0) g/dL Lipase 33 (8-78) U/L Urine Color Urine Appearance Urine pH (5.0-8.0) Ur Specific [place] (1.005-1.025) Urine Protein (NEG-TRACE) MG/DL Urine Glucose (UA) (NEG) MG/DL Urine Ketones (NEG) MG/DL Urine Blood (NEG) Urine Nitrite (NEG) Ur Leukocyte Esterase (NEG) 01/18/22 Range/Units 14:05 WBC (4.8-10.8) X10*3/uL RBC (4.60-5.80) X10*6/uL Hgb (14.0-18.0) g/dl Hct (42.0-52.0) % MCV (80.0-98.0) fL MCH (27.0-33.0) pg MCHC (31.0-36.0) g/dl RDW (11.0-16.0) % Plt Count (160-400) X10*3/uL MPV (9.4-12.4) fL Immature Gran % (Auto) (0.0-0.4) % Neut % (Auto) (45-73) % Lymph % (Auto) (20-40) % [place] % (Auto) (2-11) % Eos % (Auto) (0-4) % Baso % (Auto) (0-2) % Lymph # (Auto) (1.2-4.9) X10*3/uL [place] # (Auto) (0.1-1.2) X10*3/uL Eos # (Auto) (0.0-0.4) X10*3/uL Baso # (Auto) (0.0-0.2) X10*3/uL Abs Immat Gran (auto) (0.00-0.03) X10*3/uL Absolute Neuts (auto) (2.0-8.3) x10*3/uL Absolute Nucleated RBC (0.0-0.012) X10*3/uL Nucleated RBC % (auto) (0.0-0.2) /100WBC ESR (0-15) MM/HR Sodium (135-145) mmol/L Potassium (3.3-5.1) mmol/L Chloride (96-108) mmol/L Carbon Dioxide (22-29) mmol/L Anion Gap (12-20) BUN (9-16) mg/dL Creatinine (0.5-1.4) mg/dL Estim Creat Clear Calc Estimated GFR Random Glucose (60-115) mg/dL Calcium (8.4-10.2) mg/dL Magnesium (1.6-2.6) mg/dL Total Bilirubin (0.0-1.0) mg/dL Direct Bilirubin (0.0-0.5) mg/dL AST (5-37) U/L ALT (0-40) U/L Alkaline Phosphatase (39-117) U/L Total Creatine Kinase (38-174) U/L C-Reactive Protein (< or = 0.50) mg/dL Total Protein (6.5-8.0) g/dL Albumin (3.5-5.0) g/dL Lipase (8-78) U/L Urine Color YELLOW Urine Appearance CLEAR Urine pH 7.0 (5.0-8.0) Ur Specific [place] <= 1.005 (1.005-1.025) Urine Protein NEG (NEG-TRACE) MG/DL Urine Glucose (UA) NEG (NEG) MG/DL Urine Ketones NEG (NEG) MG/DL Urine Blood NEG (NEG) Urine Nitrite NEG (NEG) Ur Leukocyte Esterase NEG (NEG) Discharge Plan Discharge Clinical Impression: Thoracic back pain, Weakness of both legs Patient Disposition: Home, Self-Care Additional Instructions: Your blood work was reassuring. your CT scan does not show any acute findings in your back, does show an incidental finding of a possible thyroid mass, this needs to be followed up with a thyroid ultrasound and biopsy, call your primary care doctor in regards to this You also need a back MRI for further evaluation. If symptoms persist or worsen, pain or weakness becomes unbearable, changes, you for have recurrent falls, developed fever please return to the emergency department CALL YOUR PRIMARY CARE DOCTOR AND NEUROLOGY TO MAKE AN APPOINTMENT Flexeril is a muscle relaxer, take at night as it makes you drowsy, do not drive, drink alcohol, or operate machinery while taking it Naproxen as an anti-inflammatory / pain medication, take with food Lidoderm patches are numbing patches, apply to painful area In addition take Tylenol at home If symptoms persist or worsen, pain becomes unbearable, you developed urinary retention or incontinence, or weakness return to the ED Prescriptions: New hydrocodone-acetaminophen 5-325 mg tablet 1 tab PO Q8H PRN (Reason: pain, severe) 3 Days Qty: 5 0RF Rx Instructions: Partial Fill upon patient request. lidocaine [Lidoderm] 5 % adhesive patch,medicated 1 patch topical DAILY MDD remove after 12 hours PRN (Reason: pain) Qty: 30 0RF Rx Instructions: leave on most painful area for up to 12 hrs naproxen 500 mg tablet 500 mg PO BID PRN (Reason: pain) 10 Days Qty: 20 0RF cyclobenzaprine 5 mg tablet 5 mg PO Q8H PRN (Reason: pain (scale score 7-10)) 5 Days Qty: 14 0RF No Action doxycycline hyclate 100 mg capsule 100 mg PO BID 7 Days Qty: 14 0RF Referrals: Amaya Leyva MD [Physician] - Song Woodard MD [Primary Care Provider] - 1 day Interventions: ED Discharge Assessment Last Done: 01/18/22 16:46 Discharge Date/Time: 01/18/22 16:47
[2022-01-18 14:26] LABS: Alanine Aminotransferase 20 U/L (0-40); Albumin Level 4.2 g/dL (3.5-5.0); Alkaline Phosphatase 61 U/L (39-117); Anion Gap 10 (12-20); Aspartate Amino Transferase 18 U/L (5-37); Bilirubin Direct 0.2 mg/dL (0.0-0.5); Bilirubin Total 0.6 mg/dL (0.0-1.0); Blood Urea Nitrogen 9 mg/dL (9-16); C Reactive Protein 0.16 mg/dL (< or = 0.50); Calcium 9.7 mg/dL (8.4-10.2); Carbon Dioxide 29 mmol/L (22-29); Chloride 103 mmol/L (96-108); Creatinine Clr Calc Pharmacy 123.4; Estimated Glomerular Filt Rate > 60; Glucose Random 94 mg/dL (60-115); Magnesium 2.2 mg/dL (1.6-2.6); Potassium 4.3 mmol/L (3.3-5.1); Sodium 138 mmol/L (135-145)
[2022-01-18 14:28] LABS: Basophils Absolute Auto 0.1 X10*3/uL (0.0-0.2); Basophils Percent Auto 0.8 % (0-2); Eosinophils Absolute Auto 0.2 X10*3/uL (0.0-0.4); Eosinophils Percent Auto 2.1 % (0-4); Hemoglobin 15.5 g/dl (14.0-18.0); Imm Gran Abs Auto 0.05 X10*3/uL (0.00-0.03); Imm Gran Pct Auto 0.7 % (0.0-0.4); Lymphocytes Absolute Auto 2.2 X10*3/uL (1.2-4.9); Mean Corpuscular HGB Conc 34.4 g/dl (31.0-36.0); Mean Corpuscular Hemoglobin 28.8 pg (27.0-33.0); Mean Corpuscular Volume 83.6 fL (80.0-98.0); Monocytes Absolute Auto 0.5 X10*3/uL (0.1-1.2); Monocytes Percent Auto 6.8 % (2-11); Neutrophils Absolute Auto 4.6 x10*3/uL (2.0-8.3); Neutrophils Percent Auto 60.6 % (45-73); Platelet Count 351 X10*3/uL (160-400); Red Blood Count 5.38 X10*6/uL (4.60-5.80); Red Cell Distribution Width 13.2 % (11.0-16.0); White Blood Count 7.6 X10*3/uL (4.8-10.8)
[2022-01-18 14:44] LABS: Erythrocyte Sedimentation Rate 2 MM/HR (0-15)
[2022-01-18 15:32] LABS: Lipase 33 U/L (8-78)
[2022-01-18 16:39] VITALS: BP 139/91; PULSE 77; RESP 18; O2SAT 99
== END 2022-01-18 16:47 | disposition home or self-care (01) ==
PROVIDERS: Physician Assistant; Emergency Provider Emergency Medicine; PCP Internal Medicine
DX: M54.6 Pain in thoracic spine (principal); R53.1 Weakness; Z86.73 Personal history of transient ischemic attack (TIA), and cerebral infarction without residual deficits
CPT/HCPCS: 36415; 72128; 72131; 80048; 80076; 81003; 82550; 83690; 83735; 85025; 85652; 86140; 99284

== ENCOUNTER 2022-02-28 12:53 | Emergency (ER) | payer OTHER, SELFPAY ==
--- NOTE | ~2022-02-28 | CT_ITS ---
EXAMINATION: CT SOFT TISSUE NECK WITHOUT CONTRAST CLINICAL INFORMATION: Left-sided pain COMPARISON: None TECHNIQUE: Helical imaging was performed in the axial plane with generation of coronal and sagittal reformatted images. This CT examination was performed using dose optimization techniques as appropriate, variously including the following: *Automated exposure control *Adjustment of mA and/or kV according to patient size (this includes techniques or standardized protocols for targeted exams where dose is matched to indication/reason for exam; i.e. extremities or head) *Use of iterative reconstruction technique DLP: 870 mGy-cm FINDINGS: No cervical adenopathy is identified. The parotid glands are homogeneous in attenuation. The submandibular glands are normal. No contour abnormality is seen within the oral cavity or pharyngeal mucosal space. The laryngeal structures are normal. The parapharyngeal fat is preserved. No extra mucosal soft tissue mass or fluid collection is seen. No retropharyngeal fluid collection is seen. The left thyroid lobe is enlarged, with a suspected nodule measuring up to approximately 6 cm in length. There is mild mass effect with rightward deviation of the airway. The included mediastinum is otherwise unremarkable. The lung apices are clear. There is slight mucosal thickening of the right maxillary sinus. Mastoid air cells are well-aerated. The temporomandibular joints are normal. No acute osseous abnormalities are seen. The imaged portions of the brain parenchyma are unremarkable. CT/CT soft tissue neck wo con IMPRESSION: Enlarged left thyroid lobe with an approximately 6 cm nodule; further evaluation with ultrasound is recommended if not already performed. Mild mass effect on the airway is noted with rightward deviation.
[2022-02-28 14:00] VITALS: BP 151/95; PULSE 93; RESP 20; TEMP 36.9; O2SAT 97; BMI 37.1
[2022-02-28 14:56] LABS: MANUAL DIFF FLAG NO
[2022-02-28 14:58] LABS: Basophils Absolute Auto 0.1 X10*3/uL (0.0-0.2); Basophils Percent Auto 0.8 % (0-2); Eosinophils Absolute Auto 0.3 X10*3/uL (0.0-0.4); Hematocrit 46.1 % (42.0-52.0); Hemoglobin 15.6 g/dl (14.0-18.0); Imm Gran Abs Auto 0.04 X10*3/uL (0.00-0.03); Imm Gran Pct Auto 0.4 % (0.0-0.4); Lymphocytes Absolute Auto 2.3 X10*3/uL (1.2-4.9); Lymphocytes Percent Auto 25.8 % (20-40); Mean Corpuscular HGB Conc 33.8 g/dl (31.0-36.0); Mean Corpuscular Hemoglobin 28.1 pg (27.0-33.0); Mean Corpuscular Volume 83.1 fL (80.0-98.0); Mean Platelet Volume 8.6 fL (9.4-12.4); Monocytes Absolute Auto 0.5 X10*3/uL (0.1-1.2); Monocytes Percent Auto 5.5 % (2-11); Neutrophils Absolute Auto 5.7 x10*3/uL (2.0-8.3); Neutrophils Percent Auto 64.5 % (45-73); Platelet Count 340 X10*3/uL (160-400); Red Blood Count 5.55 X10*6/uL (4.60-5.80); Red Cell Distribution Width 13.4 % (11.0-16.0); White Blood Count 8.9 X10*3/uL (4.8-10.8)
[2022-02-28 15:16] LABS: Anion Gap 12 (12-20); Blood Urea Nitrogen 9 mg/dL (9-16); Calcium 9.7 mg/dL (8.4-10.2); Carbon Dioxide 28 mmol/L (22-29); Chloride 101 mmol/L (96-108); Creatinine Clr Calc Pharmacy 108.1; Estimated Glomerular Filt Rate > 60; Glucose Random 94 mg/dL (60-115); Potassium 4.3 mmol/L (3.3-5.1); Sodium 137 mmol/L (135-145)
[2022-02-28 20:53] VITALS: BP 137/97; PULSE 75; RESP 20; TEMP 36.6; O2SAT 97
--- NOTE | 2022-03-01 00:50 | ED.GENADULT ---
HPI - General Adult General Chief complaint: General Medical Stated complaint: neck pain, has cancer tumor in neck Time Seen by Provider: 02/28/22 21:10 Source: patient and old records reviewed Mode of arrival: ambulatory Limitations: no limitations History of Present Illness complaint: neck pain Onset (ago): week(s) (has had it dx with L thyroid mass 01/18 s/p biopsy waiting for follow up but pain worse since yesterday ) Location: neck Radiation: non-radiation Severity: moderate Quality: constant Pain Consistency: constant Relieving factors: none Exacerbating factors: other (palpation) Associated symptoms: other (leg pain for months knee down - intermittent no exacerbating issues) Treatments prior to arrival: none Related Data Previous Rx's Medication Instructions Recorded doxycycline hyclate 100 mg capsule 100 mg PO BID 7 days #14 caps 08/21/20 cyclobenzaprine 5 mg tablet 5 mg PO Q8H PRN pain (scale score 01/18/22 7-10) 5 days #14 tabs hydrocodone 5 mg-acetaminophen 325 1 tab PO Q8H PRN pain, severe 3 01/18/22 mg tablet days #5 tabs lidocaine 5 % topical patch 1 patch topical DAILY PRN pain #30 01/18/22 (Lidoderm) ea naproxen 500 mg tablet 500 mg PO BID PRN pain 10 days #20 01/18/22 tabs hydrocodone 5 mg-acetaminophen 325 1 tab PO Q6H PRN pain #8 tabs 03/01/22 mg tablet Allergies Allergy/AdvReac Type Severity Reaction Status Date / Time clarithromycin [Prevpac] Allergy Unknown Unknown Verified 01/18/22 12:54 dexamethasone Allergy Unknown Unknown Verified 01/18/22 12:54 esomeprazole [Nexium] Allergy Unknown Unknown Verified 01/18/22 12:54 lansoprazole [Prevpac] Allergy Unknown Unknown Verified 01/18/22 12:54 omeprazole [From PRILOSEC] Allergy Unknown RASH Verified 01/18/22 12:54 STERIODS Allergy Intermediate TACHYCARDIA, Uncoded 04/26/20 16:08 DOESNT FEEL WELL From NEXIUM Allergy Unknown ULCERS Uncoded 04/26/20 16:08 From PRILOSEC Allergy Unknown RASH Uncoded 04/26/20 16:08 Review of Systems Review of Systems: Constitutional : No Fever, No Chills ENT/Mouth : No Ear Pain, No Hoarseness, No sore throat, pos neck pain Eyes: No Eye Pain, No Swelling, No Redness, No Foreign Body Cardiovascular : No Chest Pain, No SOB Respiratory : No Cough, No Dyspnea Gastrointestinal : No Nausea, No Vomiting, No Diarrhea, No abdominal Pain Genitourinary : No Dysuria, No Hematuria Musculoskeletal : positive joint pain, pos Myalgias, No Joint Swelling Skin : No Skin lacerations, No rash Neuro : No Weakness, No Numbness, No Loss of Consciousness, No Dizziness, No Headache Psych : No Anxiety/Panic, No Depression Heme/Lymph: no easy bruising, no Lymphadenopathy Endocrine : No Polyuria, No Polydipsia All other systems reviewed and are negative [facility] Past Medical History Attestation statement: The following information was validated with the patient. Medical History Ear problem Thyroid mass TIA (transient ischemic attack) Social History Social History (Updated 03/01/22 @ 00:52 by Yessenia Brower DO) Alcohol intake: never Patient Tobacco Use Status: Never used Tobacco Advance Directives: No Advance Directives Information Provided: No Physical Exam ED Vital Signs: Vital Signs - 24 hr 02/28/22 14:00 02/28/22 20:53 03/01/22 00:54 Temperature 98.4 F 97.9 F 97.6 F Pulse Rate 93 75 74 Respiratory Rate 20 20 16 Blood Pressure 151/95 H 137/97 H 125/86 Pulse Oximetry 97 97 98 Oxygen Delivery Method Room Air Room Air Room Air 03/01/22 01:59 Temperature 97.4 F Pulse Rate 74 Respiratory Rate 16 Blood Pressure 121/76 Pulse Oximetry 98 Oxygen Delivery Method Room Air BMI result Body Mass Index 37.1 Appearance: Alert. Oriented X3. No acute distress. Eyes: Pupils equal, round and reactive to light. ENT: Pharynx normal. Neck: Normal inspection. L SCM ttp but no large mass felt, some enlargement of L thyroid gland enlarged but normal voice, no stridor CVS: Normal heart rate and rhythm. Pulses normal. Respiratory: No respiratory distress. Breath sounds normal. Abdomen: Soft and nontender. Skin: Skin warm and dry. Normal skin color. Normal skin turgor. Extremities: No lower extremity edema. No calf ttp no signs of infection, distal pulses intact Neuro: Oriented X 3. No motor deficit. No sensory deficit. Course Course Course Narrative: in ED x 13 hours no resp issues tolerating secretions no stridor - 6cm nodule, does have 6cm nodule with mild mass effect but clinically no airway effects will discuss close surgical follow up patient states his US was 6cm as well and he is aware he had compression of the airway as well. Medical Decision Making MDM Narrative Medical decision making narrative: 32 yo male with hx of thyroid mass s/p biopsy comes in with c/o L sided neck pain he has a follow up appointment unsure if it is cancer but was told it was high probability he c/o increased pain has no issues speaking or swallowing saliva, voice sounds normal will obtain labs, CT scan for enlargement given degree of pain. Chronic LE pain for months no signs of DVT. Dispo per results and findings. Lab Data Result diagrams: 02/28/22 14:40 02/28/22 14:40 Labs: Lab Results 02/28/22 02/28/22 Range/Units 14:40 14:40 WBC 8.9 (4.8-10.8) X10*3/uL RBC 5.55 (4.60-5.80) X10*6/uL Hgb 15.6 (14.0-18.0) g/dl Hct 46.1 (42.0-52.0) % MCV 83.1 (80.0-98.0) fL MCH 28.1 (27.0-33.0) pg MCHC 33.8 (31.0-36.0) g/dl RDW 13.4 (11.0-16.0) % Plt Count 340 (160-400) X10*3/uL MPV 8.6 L (9.4-12.4) fL Immature Gran % (Auto) 0.4 (0.0-0.4) % Neut % (Auto) 64.5 (45-73) % Lymph % (Auto) 25.8 (20-40) % Mckinley % (Auto) 5.5 (2-11) % Eos % (Auto) 3.0 (0-4) % Baso % (Auto) 0.8 (0-2) % Lymph # (Auto) 2.3 (1.2-4.9) X10*3/uL Mckinley # (Auto) 0.5 (0.1-1.2) X10*3/uL Eos # (Auto) 0.3 (0.0-0.4) X10*3/uL Baso # (Auto) 0.1 (0.0-0.2) X10*3/uL Abs Immat Gran (auto) 0.04 H (0.00-0.03) X10*3/uL Absolute Neuts (auto) 5.7 (2.0-8.3) x10*3/uL Absolute Nucleated RBC 0.000 (0.0-0.012) X10*3/uL Nucleated RBC % (auto) 0.0 (0.0-0.2) /100WBC Sodium 137 (135-145) mmol/L Potassium 4.3 (3.3-5.1) mmol/L Chloride 101 (96-108) mmol/L Carbon Dioxide 28 (22-29) mmol/L Anion Gap 12 (12-20) BUN 9 (9-16) mg/dL Creatinine 1.12 (0.5-1.4) mg/dL Estim Creat Clear Calc 108.1 Estimated GFR > 60 Random Glucose 94 (60-115) mg/dL Calcium 9.7 (8.4-10.2) mg/dL Magnesium 2.0 (1.6-2.6) mg/dL Total Creatine Kinase 223 H D (38-174) U/L TSH 1.88 (0.32-4.0) uIU/mL Discharge Plan Discharge Clinical Impression: Thyroid nodule Patient Disposition: Home, Self-Care Instructions: Thyroid Nodules (ED) Additional Instructions: TSH normal 1.[address] neck 6cm some mild mass effect on airway - ANY DIFFICULTY BREATHING, SWALLOWING SEEK IMMEDIATE CARE YOU NEED TO SEE ENT SOON POSSIBLE [facility] [address] [place] [phone] FINDINGS: No cervical adenopathy is identified. The parotid glands are homogeneous in attenuation. The submandibular glands are normal. No contour abnormality is seen within the oral cavity or pharyngeal mucosal space. The laryngeal structures are normal. The parapharyngeal fat is preserved. No extra mucosal soft tissue mass or fluid collection is seen. No retropharyngeal fluid collection is seen. The left thyroid lobe is enlarged, with a suspected nodule measuring up to approximately 6 cm in length. There is mild mass effect with rightward deviation of the airway. The included mediastinum is otherwise unremarkable. The lung apices are clear. There is slight mucosal thickening of the right maxillary sinus. Mastoid air cells are well-aerated. The temporomandibular joints are normal. No acute osseous abnormalities are seen. The imaged portions of the brain parenchyma are unremarkable. CT/CT soft tissue neck wo con IMPRESSION: Enlarged left thyroid lobe with an approximately 6 cm nodule; further evaluation with ultrasound is recommended if not already performed. Mild mass effect on the airway is noted with rightward deviation. Prescriptions: New hydrocodone-acetaminophen 5-325 mg tablet 1 tab PO Q6H PRN (Reason: pain) Qty: 8 0RF Rx Instructions: partial fill okay; Partial Fill upon patient request. No Action doxycycline hyclate 100 mg capsule 100 mg PO BID 7 Days Qty: 14 0RF hydrocodone-acetaminophen 5-325 mg tablet 1 tab PO Q8H PRN (Reason: pain, severe) 3 Days Qty: 5 0RF Rx Instructions: Partial Fill upon patient request. lidocaine [Lidoderm] 5 % adhesive patch,medicated 1 patch topical DAILY MDD remove after 12 hours PRN (Reason: pain) Qty: 30 0RF Rx Instructions: leave on most painful area for up to 12 hrs naproxen 500 mg tablet 500 mg PO BID PRN (Reason: pain) 10 Days Qty: 20 0RF cyclobenzaprine 5 mg tablet 5 mg PO Q8H PRN (Reason: pain (scale score 7-10)) 5 Days Qty: 14 0RF Stand Alone Forms: Work/School Release Interventions: ED Discharge Assessment Last Done: 03/01/22 02:52 Discharge Date/Time: 03/01/22 02:36
[2022-03-01 00:54] VITALS: BP 125/86; PULSE 74; RESP 16; TEMP 36.4; O2SAT 98
[2022-03-01 01:27] LABS: TSH reflex Free T4 1.88 uIU/mL (0.32-4.0)
[2022-03-01 01:59] VITALS: BP 121/76; PULSE 74; RESP 16; TEMP 36.3; O2SAT 98
== END 2022-03-01 02:36 | disposition home or self-care (01) ==
PROVIDERS: Emergency Provider Emergency Medicine; PCP Internal Medicine
DX: E04.1 Nontoxic single thyroid nodule (principal); R22.1 Localized swelling, mass and lump, neck; M54.2 Cervicalgia; G89.29 Other chronic pain; M79.662 Pain in left lower leg; Z86.73 Personal history of transient ischemic attack (TIA), and cerebral infarction without residual deficits
CPT/HCPCS: 36415; 70490; 80048; 82550; 83735; 84443; 85025; 99283; 99284

== ENCOUNTER 2023-01-06 12:16 | Emergency (ER) | payer OTHER, SELFPAY ==
--- NOTE | ~2023-01-06 | XR_ITS ---
EXAMINATION: XR CHEST CLINICAL INFORMATION: Upper back pain COMPARISON: Previous chest x-ray August 2021 TECHNIQUE: 2 views of the chest were obtained. FINDINGS: The cardiac and mediastinal contours are stable. The lungs are clear. No pleural effusion or pneumothorax. Thoracic spine not well visualized due to rotation on the lateral no acute bone abnormality appreciated. XR/XR chest 2V IMPRESSION: No evidence for acute disease in the chest. Thoracic spine not well evaluated due to rotation on the lateral view.
[2023-01-06 12:49] VITALS: BP 142/94; PULSE 88; RESP 16; TEMP 36.3; O2SAT 97; BMI 40.3
--- NOTE | 2023-01-06 12:53 | ED_ITS ---
HPI - Back Pain/Injury General Chief Complaint: Back Pain/Injury Stated Complaint: back pain Time Seen by Provider: 01/06/23 15:48 History of Present Illness HPI Narrative: patient complains of thoracic back pain that radiates somewhat to the chest and hurts when he takes a deep breath and moves and is relieved by finding position of comfort There is no shortness of breath there is no chest pain now, no exertional symptoms no vomiting He is being treated for thyroid cancer in [place], and he is scheduled for imaging tomorrow for this complaint He denies any radiation of the pain there is no numbness no tingling no loss of muscle strength no loss of sensation no shortness of breath no nausea vomiting no diaphoresis no fever no chills Related Data Previous Rx's Medication Instructions Recorded doxycycline hyclate 100 mg capsule 100 mg PO BID 7 days #14 caps 08/21/20 cyclobenzaprine 5 mg tablet 5 mg PO Q8H PRN pain (scale score 01/18/22 7-10) 5 days #14 tabs hydrocodone 5 mg-acetaminophen 325 1 tab PO Q8H PRN pain, severe 3 01/18/22 mg tablet days #5 tabs lidocaine 5 % topical patch 1 patch topical DAILY PRN pain #30 01/18/22 (Lidoderm) ea naproxen 500 mg tablet 500 mg PO BID PRN pain 10 days #20 01/18/22 tabs hydrocodone 5 mg-acetaminophen 325 1 tab PO Q6H PRN pain #8 tabs 03/01/22 mg tablet naproxen 500 mg tablet (Naprosyn) 500 mg PO BID PRN pain #14 tabs 01/06/23 Allergies Allergy/AdvReac Type Severity Reaction Status Date / Time clarithromycin [Prevpac] Allergy Unknown Unknown Verified 01/18/22 12:54 dexamethasone Allergy Unknown Unknown Verified 01/18/22 12:54 esomeprazole [Nexium] Allergy Unknown Unknown Verified 01/18/22 12:54 lansoprazole [Prevpac] Allergy Unknown Unknown Verified 01/18/22 12:54 omeprazole [From PRILOSEC] Allergy Unknown RASH Verified 01/18/22 12:54 STERIODS Allergy Intermediate TACHYCARDIA, Uncoded 04/26/20 16:08 DOESNT FEEL WELL From NEXIUM Allergy Unknown ULCERS Uncoded 04/26/20 16:08 From PRILOSEC Allergy Unknown RASH Uncoded 04/26/20 16:08 REPLACED BY [facility] Past Medical History Source: nursing notes reviewed Medical History Ear problem Thyroid mass TIA (transient ischemic attack) Social History Social History (Updated 03/01/22 @ 00:52 by Kateryna Brower DO) Alcohol intake: never Patient Tobacco Use Status: Never used Tobacco Advance Directives: No Advance Directives Information Provided: No Physical Exam Vital Signs: Vital Signs: Last Vital Signs Temp 98.2 F 01/06/23 18:14 Pulse 77 01/06/23 18:14 Resp 16 01/06/23 18:14 BP 137/94 H 01/06/23 18:14 Pulse Ox 98 01/06/23 18:14 O2 Del Method Room Air 01/06/23 18:14 BMI result Body Mass Index 40.3 General appearance is no acute distress Head is normocephalic atraumatic Eyes no redness or discharge The pharynx is clear without redness swelling or exudate Neck is supple The chest is clear with full symmetric equal breath sounds the skin of the chest was normal there was no tenderness to the chest wall, no pleuritic pain The abdomen soft nontender The back there was right-sided upper back tenderness, pain easily reproduced with movement, skin of the back was normal Extremities is full range of motion x4 although there was discomfort with moving the shoulder on the right side Neuro no focal motor sensory deficits Course Course Course Narrative: RME - 32 yo male with history of a rare thyroid cancer currently getting radiation therapy presents to the ER for evaluation of upper back pain between his shoulder blade after he had radiation. Worse with movement. Not SOB. 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 director who is managing his thyroid cancer doctor guanakito fernandez at [facility] who called me back and said he does not need any imaging at this time as they are doing a nuclear scan tomorrow they are aware of his complaints about the upper back pain he is followed by pain management in the hospital she advised to hold off on any opioid prescription and his pain will be managed by pain management and endocrinology service A chest x-ray was done and it was negative for any acute disease EKG was a normal sinus rhythm without any acute ischemic changes Patient remained stable throughout ER visit with no chest pain or shortness of breath and was discharged to follow with his doctors in [place] Medications Administered Discontinued Medications Generic Name Dose Route Start Last Admin Trade Name Freq PRN Reason Stop Dose Admin Acetaminophen 975 mg 01/06/23 18:24 01/06/23 18:38 Acetaminophen 325 Mg Tablet PO 01/06/23 18:25 975 mg ONCE ONE Administration Oxycodone HCl 5 mg 01/06/23 18:24 01/06/23 18:38 Oxycodone Hcl Immed Release 5 Mg Tablet PO 01/06/23 18:25 5 mg ONCE ONE Administration Discharge Plan Discharge Clinical Impression: Back pain, Cancer of thyroid Patient Disposition: Home, Self-Care Additional Instructions: I spoke to Dr. Fernandez who advised that no imaging is needed now as you will be imaged tomorrow in [place] She will be calling you after the imaging to check in She advised follow with pain management for further pain control Return any time if worse Prescriptions: New naproxen [Naprosyn] 500 mg tablet 500 mg PO BID PRN (Reason: pain) Qty: 14 0RF No Action doxycycline hyclate 100 mg capsule 100 mg PO BID 7 Days Qty: 14 0RF hydrocodone-acetaminophen 5-325 mg tablet 1 tab PO Q8H PRN (Reason: pain, severe) 3 Days Qty: 5 0RF Rx Instructions: Partial Fill upon patient request. lidocaine [Lidoderm] 5 % adhesive patch,medicated 1 patch topical DAILY MDD remove after 12 hours PRN (Reason: pain) Qty: 30 0RF Rx Instructions: leave on most painful area for up to 12 hrs naproxen 500 mg tablet 500 mg PO BID PRN (Reason: pain) 10 Days Qty: 20 0RF cyclobenzaprine 5 mg tablet 5 mg PO Q8H PRN (Reason: pain (scale score 7-10)) 5 Days Qty: 14 0RF hydrocodone-acetaminophen 5-325 mg tablet 1 tab PO Q6H PRN (Reason: pain) Qty: 8 0RF Rx Instructions: partial fill okay; Partial Fill upon patient request. Interventions: ED Discharge Assessment Last Done: 01/06/23 19:30 Discharge Date/Time: 01/06/23 19:30
[2023-01-06 16:00] VITALS: BP 121/73; PULSE 82; RESP 18; TEMP 37.1; O2SAT 98
[2023-01-06 18:14] VITALS: BP 137/94; PULSE 77; RESP 16; TEMP 36.8; O2SAT 98
[2023-01-06] MEDS: oxyCODONE HCl Immed Release 5 MG TABLET PO (18:38)
[2023-01-06] MEDS: Acetaminophen 325 MG TABLET 975 MG PO (18:38)
--- NOTE | 2023-01-06 19:13 | ECG_ITS ---
Test Reason : cp Blood Pressure : / mmHG Vent. Rate : 070 BPM Atrial Rate : 070 BPM P-R Int : 128 ms QRS Dur : 082 ms QT Int : 374 ms P-R-T Axes : 018 000 007 degrees QTc Int : 403 ms Normal sinus rhythm with sinus arrhythmia Normal ECG When compared with ECG of 20-SEP-2021 14:15, No significant change was found Referred By: Darnell Cartagena Electronically Signed By:SHEELA PORTER MD
== END 2023-01-06 19:30 | disposition home or self-care (01) ==
PROVIDERS: Emergency Provider Emergency Medicine
DX: M54.6 Pain in thoracic spine (principal); C73 Malignant neoplasm of thyroid gland; Z86.73 Personal history of transient ischemic attack (TIA), and cerebral infarction without residual deficits
CPT/HCPCS: 71046; 93005; 99284

== ENCOUNTER 2023-02-18 17:36 | Emergency (ER) | payer OTHER, SELFPAY ==
--- NOTE | ~2023-02-18 | XR_ITS ---
EXAMINATION: XR LUMBOSACRAL SPINE CLINICAL INFORMATION: Pain, has thyroid ca w/ c/o leg weakness COMPARISON: Lumbar spine 08/19/2019 TECHNIQUE: Three views of the lumbosacral spine. FINDINGS: No fracture. No focal bone lesion. Alignment of vertebrae is normal. No spondylolysis. Mild disc height narrowing and L3-L4. Mild degenerative lipping of the vertebrae at this disc level. This is unchanged since prior exam. Facet joints are normal. XR/XR lumbar spine 2-3V IMPRESSION: 1. No acute abnormality. 2. Mild degenerative spondylosis of lumbar spine.
[2023-02-18 18:40] VITALS: BP 138/74; PULSE 78; RESP 16; TEMP 36.5; O2SAT 98; BMI 40.3
--- NOTE | 2023-02-18 18:40 | ED.GENADULT ---
HPI - General Adult General Chief complaint: Weakness Stated complaint: Leg pain/weakness in both legs/cancer patient Time Seen by Provider: 02/18/23 20:55 Source: patient Mode of arrival: ambulatory History of Present Illness HPI narrative: 33-year-old male with underlying stuttering condition as well as reportedly having thyroid cancer for which he is undergoing treatment at [facility] and has a follow-up appointment this coming Thursday. Patient reports that over the past 3 days he has been experiencing lower back pain without fevers or chills and denies any alcohol or drug use and denies any numbness in the groin area or any bowel or bladder issues. However, he does report bilateral leg weakness with pain. Patient lives by himself at home. He denies any genetic testing being completed by [facility] and also denies any family history of pancreatic/thyroid cancer. Related Data Previous Rx's Medication Instructions Recorded doxycycline hyclate 100 mg capsule 100 mg PO BID 7 days #14 caps 08/21/20 cyclobenzaprine 5 mg tablet 5 mg PO Q8H PRN pain (scale score 01/18/22 7-10) 5 days #14 tabs hydrocodone 5 mg-acetaminophen 325 1 tab PO Q8H PRN pain, severe 3 01/18/22 mg tablet days #5 tabs lidocaine 5 % topical patch 1 patch topical DAILY PRN pain #30 01/18/22 (Lidoderm) ea naproxen 500 mg tablet 500 mg PO BID PRN pain 10 days #20 01/18/22 tabs hydrocodone 5 mg-acetaminophen 325 1 tab PO Q6H PRN pain #8 tabs 03/01/22 mg tablet naproxen 500 mg tablet (Naprosyn) 500 mg PO BID PRN pain #14 tabs 01/06/23 Allergies Allergy/AdvReac Type Severity Reaction Status Date / Time clarithromycin [Prevpac] Allergy Unknown Unknown Verified 02/18/23 18:40 dexamethasone Allergy Unknown Unknown Verified 02/18/23 18:40 esomeprazole [Nexium] Allergy Unknown Unknown Verified 02/18/23 18:40 lansoprazole [Prevpac] Allergy Unknown Unknown Verified 02/18/23 18:40 omeprazole [From PRILOSEC] Allergy Unknown RASH Verified 02/18/23 18:40 STERIODS Allergy Intermediate TACHYCARDIA, Uncoded 02/18/23 18:40 DOESNT FEEL WELL From NEXIUM Allergy Unknown ULCERS Uncoded 02/18/23 18:40 From PRILOSEC Allergy Unknown RASH Uncoded 02/18/23 18:40 Review of Systems Review of Systems: Pertinent positives and negatives as stated in HPI PMFSH Past Medical History Source: nursing notes reviewed Medical History Ear problem Thyroid mass TIA (transient ischemic attack) Social History Social History Alcohol intake: never Patient Tobacco Use Status: Never used Tobacco Advance Directives: No Advance Directives Information Provided: No Physical Exam ED Vital Signs: Vital Signs - 24 hr 02/18/23 18:40 02/18/23 19:45 02/18/23 21:57 Temperature 97.7 F 98.3 F 98.1 F Pulse Rate 78 83 75 Respiratory Rate 16 5 L 31 H Blood Pressure 138/74 128/77 111/74 Pulse Oximetry 98 100 98 Oxygen Delivery Method Room Air Room Air Room Air BMI result Body Mass Index 40.3 VITAL SIGNS: Reviewed. GENERAL: Elevated BMI, Well developed, well nourished, in no acute distress. HEAD: Normocephalic/atraumatic EYES: PERRLA, EOMI EARS: Ext canals without abnormality NOSE: Nares patent bilateral OROPHARYNX: no oral lesions noted, posterior pharynx clear and non-erythematous without noted tonsillar enlargement/erythema/exudates NECK: Supple, no adenopathy LUNGS: Normal breath sounds. No adventitious sounds or accessory muscle use. SpO2<100> CARDIOVASCULAR: Regular rate and rhythm without noted murmurs ABDOMEN: Soft, non-tender, non-distended with bowel sounds. BACK: No midline vertebral tenderness or step-offs noted MUSCULOSKELETAL: No tenderness, deformities, or effusions noted on gross inspection. EXTREMITIES: No cyanosis, clubbing or edema. SKIN: Inspection of the skin reveals no rashes NEUROLOGIC: Alert and oriented x 4. Strength and sensation to light touch were grossly intact x 4, DTRs intact. Course Course Course Narrative: This is a rapid medical exam: Additional HPI, ROS, PE not included below will be deferred to primary provider. Patient is a 33-year-old male with history of TIA, thyroid cancer, just had radiation, presenting to the emergency department with complaint of bilateral leg pain and weakness for the past several days. Denies any fevers but does report feeling hot/chills. Reports several episodes of tripping and falling off lawnmowers, which is not typical for him, as he owns a [employer] company. Plan: labs Medical Decision Making Medical Decision Making [facility] Narrative: 33-year-old male with history and clinical presentation, DDX: lytic lesions thought less likely as thyroid ca typically does not spread to L-spine, MSK in general as patient is overweight, electrolyte etiology, anemia, no clinical suspicion for cauda equina, ?lumbar radiculopathy. I reviewed all investigations, hematologic indices do not demonstrate any leukocytosis/left shift/anemia/thrombocytopenia, chemistry indices are grossly within normal limits without evidence to suggest derangements as an etiology for patient's bilateral lower extremity weakness and back pain. There is a noted mild elevation of the TSH but patient also has follow-up appointment this coming Thursday with his oncologist at [facility]. Urinalysis is negative for infection. L-spine x-ray is negative for evidence of lytic lesion and otherwise my interpretation is in agreement with radiology's impression. Overall, it is my interpretation that patient is experiencing musculoskeletal discomfort, possibly needs to increase oral hydration but there does not appear to be any evidence to suggest myelopathy or bony abnormality. Differential Diagnosis Differential Diagnoses: The differential diagnosis associated with the presentation includes Please see the discussion above Admission/Observation Consideration of admission/observation: Escalation of care including admission/observation considered Lab Data [facility] Lab Attestation statement: I reviewed the patient's lab results. Please see the discussion above 02/18/23 19:09 02/18/23 19:09 Labs: Lab Results 02/18/23 02/18/23 02/18/23 Range/Units 19:09 19:09 22:39 WBC 9.1 (4.8-10.8) X10*3/uL RBC 5.33 (4.60-5.80) X10*6/uL Hgb 14.9 (14.0-18.0) g/dl Hct 44.5 (42.0-52.0) % MCV 83.5 (80.0-98.0) fL MCH 28.0 (27.0-33.0) pg MCHC 33.5 (31.0-36.0) g/dl RDW 13.2 (11.0-16.0) % Plt Count 320 (160-400) X10*3/uL MPV 8.5 L (9.4-12.4) fL Immature Gran % (Auto) 0.1 (0.0-0.4) % Neut % (Auto) 67.8 (45-73) % Lymph % (Auto) 20.8 (20-40) % [place] % (Auto) 8.2 (2-11) % Eos % (Auto) 2.3 (0-4) % Baso % (Auto) 0.8 (0-2) % Lymph # (Auto) 1.9 (1.2-4.9) X10*3/uL [place] # (Auto) 0.8 (0.1-1.2) X10*3/uL Eos # (Auto) 0.2 (0.0-0.4) X10*3/uL Baso # (Auto) 0.1 (0.0-0.2) X10*3/uL Abs Immat Gran (auto) 0.01 (0.00-0.03) X10*3/uL Absolute Neuts (auto) 6.2 (2.0-8.3) x10*3/uL Absolute Nucleated RBC 0.000 (0.0-0.012) X10*3/uL Nucleated RBC % (auto) 0.0 (0.0-0.2) /100WBC Sodium 144 (135-145) mmol/L Potassium 3.7 (3.3-5.1) mmol/L Chloride 105 (96-108) mmol/L Carbon Dioxide 28 (22-29) mmol/L Anion Gap 15 (12-20) BUN 9 (9-16) mg/dL Creatinine 1.03 (0.5-1.4) mg/dL Estim Creat Clear Calc 121.8 Estimated GFR > 60 Random Glucose 76 (60-115) mg/dL Calcium 9.4 (8.4-10.2) mg/dL Magnesium 2.3 (1.6-2.6) mg/dL Total Bilirubin 0.4 (0.0-1.0) mg/dL AST 20 (5-37) U/L ALT 28 (0-40) U/L Alkaline Phosphatase 70 (39-117) U/L Total Protein 7.1 (6.5-8.0) g/dL Albumin 4.0 (3.5-5.0) g/dL TSH 4.54 H (0.32-4.0) uIU/mL Urine Color Yellow Urine Appearance Clear Urine pH 6.0 (5.0-9.0) Ur Specific [place] >= 1.030 H (1.005-1.025) Urine Protein Negative (Neg-Trace) mg/dL Urine Glucose (UA) Negative (Negative) mg/dL Urine Ketones Trace (Negative) mg/dL Urine Blood Negative (Negative) Urine Nitrite Negative (Negative) Ur Leukocyte Esterase Negative (Negative) Radiology Impression Radiologist Impression: No bony lesions noted, otherwise my interpretation is in agreement with radiology's impression. Discharge Plan Discharge Clinical Impression: Dehydration, Musculoskeletal pain, Back pain Patient Disposition: Home, Self-Care Instructions: Dehydration (ED), Musculoskeletal Pain (ED), Back Pain (ED) Additional Instructions: 1. I would recommend that you continue with your Tylenol and ibuprofen and consider using lidocaine patch for additional symptom relief. 2. Please consider following up with your primary care provider to discuss physical therapy to cyst with your back discomfort. 3. Follow-up with your oncologist at [facility] regarding your thyroid issues. Return to the ER for any worsening symptoms. Prescriptions: No Action doxycycline hyclate 100 mg capsule 100 mg PO BID 7 Days Qty: 14 0RF hydrocodone-acetaminophen 5-325 mg tablet 1 tab PO Q8H PRN (Reason: pain, severe) 3 Days Qty: 5 0RF Rx Instructions: Partial Fill upon patient request. lidocaine [Lidoderm] 5 % adhesive patch,medicated 1 patch topical DAILY MDD remove after 12 hours PRN (Reason: pain) Qty: 30 0RF Rx Instructions: leave on most painful area for up to 12 hrs naproxen 500 mg tablet 500 mg PO BID PRN (Reason: pain) 10 Days Qty: 20 0RF cyclobenzaprine 5 mg tablet 5 mg PO Q8H PRN (Reason: pain (scale score 7-10)) 5 Days Qty: 14 0RF hydrocodone-acetaminophen 5-325 mg tablet 1 tab PO Q6H PRN (Reason: pain) Qty: 8 0RF Rx Instructions: partial fill okay; Partial Fill upon patient request. naproxen [Naprosyn] 500 mg tablet 500 mg PO BID PRN (Reason: pain) Qty: 14 0RF
[2023-02-18 19:14] LABS: MANUAL DIFF FLAG NO
[2023-02-18 19:15] LABS: Basophils Absolute Auto 0.1 X10*3/uL (0.0-0.2); Basophils Percent Auto 0.8 % (0-2); Eosinophils Absolute Auto 0.2 X10*3/uL (0.0-0.4); Eosinophils Percent Auto 2.3 % (0-4); Hematocrit 44.5 % (42.0-52.0); Hemoglobin 14.9 g/dl (14.0-18.0); Imm Gran Abs Auto 0.01 X10*3/uL (0.00-0.03); Imm Gran Pct Auto 0.1 % (0.0-0.4); Lymphocytes Absolute Auto 1.9 X10*3/uL (1.2-4.9); Lymphocytes Percent Auto 20.8 % (20-40); Mean Corpuscular HGB Conc 33.5 g/dl (31.0-36.0); Mean Corpuscular Volume 83.5 fL (80.0-98.0); Mean Platelet Volume 8.5 fL (9.4-12.4); Monocytes Absolute Auto 0.8 X10*3/uL (0.1-1.2); Monocytes Percent Auto 8.2 % (2-11); Neutrophils Absolute Auto 6.2 x10*3/uL (2.0-8.3); Neutrophils Percent Auto 67.8 % (45-73); Platelet Count 320 X10*3/uL (160-400); Red Blood Count 5.33 X10*6/uL (4.60-5.80); Red Cell Distribution Width 13.2 % (11.0-16.0); White Blood Count 9.1 X10*3/uL (4.8-10.8)
[2023-02-18 19:37] LABS: Alanine Aminotransferase 28 U/L (0-40); Alkaline Phosphatase 70 U/L (39-117); Anion Gap 15 (12-20); Aspartate Amino Transferase 20 U/L (5-37); Bilirubin Total 0.4 mg/dL (0.0-1.0); Blood Urea Nitrogen 9 mg/dL (9-16); Calcium 9.4 mg/dL (8.4-10.2); Carbon Dioxide 28 mmol/L (22-29); Chloride 105 mmol/L (96-108); Creatinine Clr Calc Pharmacy 121.8; Estimated Glomerular Filt Rate > 60; Glucose Random 76 mg/dL (60-115); Potassium 3.7 mmol/L (3.3-5.1); Sodium 144 mmol/L (135-145); Total Protein 7.1 g/dL (6.5-8.0)
[2023-02-18 19:45] VITALS: BP 128/77; PULSE 83; RESP 5; TEMP 36.8; O2SAT 100
[2023-02-18 21:44] LABS: Magnesium 2.3 mg/dL (1.6-2.6)
[2023-02-18 21:57] VITALS: BP 111/74; PULSE 75; RESP 31; TEMP 36.7; O2SAT 98
[2023-02-18 22:05] LABS: Thyroid Stimulating Hormone 4.54 uIU/mL (0.32-4.0)
[2023-02-18 22:47] LABS: Appearance Urine Clear; Color Urine Yellow; Glucose Urine UA Negative (Negative); Leukocyte Esterase Urine Negative (Negative); Nitrite Urine Negative (Negative); Specific Gravity - Urine >= 1.030 (1.005-1.025); Urine Blood Negative (Negative); Urine Ketones Trace mg/dL (Negative); Urine Protein Negative (Neg-Trace)
== END 2023-02-18 23:27 | disposition home or self-care (01) ==
PROVIDERS: Registered Nurse Emergency; Emergency Provider Student in an Organized Health Care Education/Training Program
DX: E86.0 Dehydration (principal); M79.18 Myalgia, other site; M54.50 Low back pain, unspecified; C73 Malignant neoplasm of thyroid gland; E66.9 Obesity, unspecified; Z68.41 Body mass index [BMI] 40.0-44.9, adult; Z92.3 Personal history of irradiation; Z86.73 Personal history of transient ischemic attack (TIA), and cerebral infarction without residual deficits; Z79.899 Other long term (current) drug therapy
CPT/HCPCS: 36415; 72100; 80053; 81003; 83735; 84443; 85025; 99283; 99284

== ENCOUNTER 2024-01-05 13:56 | Emergency (ER) | payer MEDICAID, SELFPAY ==
--- NOTE | ~2024-01-05 | CT_ITS ---
EXAMINATION: CT SOFT TISSUE NECK WITH CONTRAST CLINICAL INFORMATION: hx thyroid CA, thyroidectomy, pain on L side COMPARISON: CT of the neck with contrast 03/01/2022 TECHNIQUE: Following the administration of 60 mL of Omnipaque 350 intravenous contrast, helical imaging was performed in the axial plane with generation of coronal and sagittal reformatted images. This CT examination was performed using dose optimization techniques as appropriate, variously including the following: *Automated exposure control. *Adjustment of mA and/or kV according to patient size (this includes techniques or standardized protocols for targeted exams where dose is matched to indication/reason for exam; i.e. extremities or head). *Use of iterative reconstruction technique. DLP: 660 mGy-cm. FINDINGS: Nasopharynx/skull base: The fat planes of the skull base and soft tissues of the nasopharynx are unremarkable. Trace right maxillary sinus mucosal thickening. The mastoid air cells are well aerated. The temporomandibular joints are normal. Suprahyoid neck: The oropharynx, oral cavity, and bilateral salivary gland tissues are unremarkable. Infrahyoid neck: The hypopharynx and larynx are unremarkable. No aerodigestive tract mass. Thyroid: Status post thyroidectomy. Lymph nodes: There is no cervical chain lymphadenopathy. Lung apices: The partially visualized lung apices are clear. Vascular structures: Arterial structures in the neck are suboptimally evaluated related to the phase of contrast timing. No vascular occlusion in the neck is identified. Osseous structures: The osseous structures are intact without suspicious focal lesion. Other: The imaged portions of the brain parenchyma are unremarkable. CT/CT soft tissue neck w IV con IMPRESSION: 1. No acute soft tissue abnormality in the neck is identified. 2. Status post thyroidectomy.
--- NOTE | 2024-01-05 14:07 | ED_ITS ---
HPI - General Adult General Chief complaint: General Medical Stated complaint: throat pain Time Seen by Provider: 01/05/24 15:29 Source: patient, RN notes reviewed and old records reviewed Mode of arrival: ambulatory Limitations: no limitations History of Present Illness ED Provider: Patrick Antunez NP HPI narrative: Patient is a 33-year-old male with history of thyroid cancer and thyroidectomy presenting to the emergency department with complaint of left-sided neck pain for the past week. He states he feels a pressure inside his neck as though there is a mass pushing up against something. He states it feels similar to symptoms that he had prior to diagnosis of his thyroid cancer. States due to insurance issues, he has not had any follow-up care for the last 8 months. Had tumor removed at [facility]. States initially nodule and half of the thyroid was removed, then once biopsied and found to be cancerous and aggressive, the other half was removed. He also had radiation treatment. States he was told the type of cancer is extremely aggressive and is very likely to reoccur. Also noted that his boyfriend was recently tested for syphilis and is requesting STI testing. MD complaint: neck pain Onset (ago): week(s) Location: neck Radiation: other (to left ear) Severity: severe Quality: aching Pain Consistency: constant Relieving factors: none Exacerbating factors: eating and other (swallowing, palpation) Associated symptoms: denies other symptoms Treatments prior to arrival: none Related Data Previous Rx's ?Medication ?Instructions ?Recorded doxycycline hyclate 100 mg capsule 100 mg PO BID 7 days #14 caps 08/21/20 cyclobenzaprine 5 mg tablet 5 mg PO Q8H PRN pain (scale score 01/18/22 7-10) 5 days #14 tabs hydrocodone 5 mg-acetaminophen 325 1 tab PO Q8H PRN pain, severe 3 01/18/22 mg tablet days #5 tabs lidocaine 5 % topical patch 1 patch topical DAILY PRN pain #30 01/18/22 (Lidoderm) ea naproxen 500 mg tablet 500 mg PO BID PRN pain 10 days #20 01/18/22 tabs hydrocodone 5 mg-acetaminophen 325 1 tab PO Q6H PRN pain #8 tabs 03/01/22 mg tablet naproxen 500 mg tablet (Naprosyn) 500 mg PO BID PRN pain #14 tabs 01/06/23 Allergies Allergy/AdvReac Type Severity Reaction Status Date / Time clarithromycin [Prevpac] Allergy Unknown Unknown Verified 01/05/24 14:11 dexamethasone Allergy Unknown Unknown Verified 01/05/24 14:11 esomeprazole [Nexium] Allergy Unknown Unknown Verified 01/05/24 14:11 lansoprazole [Prevpac] Allergy Unknown Unknown Verified 01/05/24 14:11 omeprazole [From PRILOSEC] Allergy Unknown RASH Verified 01/05/24 14:11 Review of Systems 2 Review of Systems: As per HPI. Yes all other systems are reviewed and are negative Constitutional: Constitutional: Reports as per HPI [facility] Past Medical History Medical History Ear problem Thyroid mass TIA (transient ischemic attack) Social History Social History Alcohol intake: never Patient Tobacco Use Status: Never used Tobacco Advance Directives: No Advance Directives Information Provided: No Do you have a plan to hurt others: No Plan Physical Exam ED Vital Signs: Vital Signs - 24 hr 01/05/24 14:08 01/05/24 20:06 Temperature 98.0 F 98.2 F Pulse Rate 100 90 Respiratory Rate 18 16 Blood Pressure 145/94 H 129/83 Pulse Oximetry 99 94 Oxygen Delivery Method Room Air Room Air BMI result Body Mass Index 45.8 Vital signs have been reviewed and appear to be correct. Blood pressure mildly elevated. Heart rate normal. Respiratory rate normal. Temperature normal. Oxygen saturation normal. Const General: cooperative, healthy appearing and no acute distress Orientation/consciousness: oriented to person, oriented to place, oriented to time and patient oriented x3 Limitations: no limitations [facility] Head: Yes normocephalic and Yes atraumatic Ears: external ears normal General nose exam: Normal external nose present Face and sinus: Yes face symmetric Mouth: oropharynx normal and moist mucous membranes Throat: Yes uvula midline Eyes Pupils: Equal, round and reactive pupils present Neck Neck: Yes normal visual inspection, Yes full ROM, Yes no lymphadenopathy, Yes no meningeal signs, Yes trachea midline, Yes supple, No anterior neck swelling, Yes tender (left anterior neck, pain increases with swallowing on palpation) and Yes other (surgical scar) Thyroid: abnormal thyroid (surgically absent) Resp Effort & Inspection: normal respiratory effort and able to speak in complete sentences Auscultation: clear to auscultation bilaterally Cardio Rate: regular rate Rhythm: regular rhythm Heart sounds: S1 normal heart sound present and S2 normal heart sound present GI Palpation (GI): Soft to palpation and nontender Auscultation: normoactive bowel sounds General: Yes no CVA tenderness Back/Spine/Pelvis Back: no CVA tenderness Skin General skin exam: elasticity normal and turgor normal Neuro General: oriented to person, oriented to place, oriented to time, patient oriented x3, moves all extremities, no meningeal signs, no focal motor deficits and CN's II-XI intact bilaterally Cranial nerves: Yes Equal, round and reactive pupils present Cognition (Neuro): normal cognition Extrem General: Yes full ROM, Yes no pedal edema and Yes no calf tenderness Psych Mental Status: mental status grossly normal Affect: normal affect Thought process: Normal thought process present Course Course Course Narrative: RME performed by Jacqui Brannon PA-C. Patient is a 33 year old assigned male at presenting to the emergency department with a sore throat. Patient states over the last few days he has had a left sided interior neck pain. Patient states that he had cancer removed from that area previously. Patient states that the pain is radiating into his left ear. Detailed physical exam and review of systems are deferred to the principal automation engineer. Swabs and labs ordered. Patient placed back in the waiting room pending room availability and results. Medications Administered Discontinued Medications Generic Name Dose Route Start Last Admin Trade Name Freq PRN Reason Stop Dose Admin Iohexol 60 ml 01/05/24 19:34 01/05/24 19:34 Iohexol 350 Mg/Ml 100 Ml Infus..Btl IV 01/05/24 19:35 60 ml ONCE ONE Administration Ketorolac Tromethamine 15 mg 01/05/24 19:57 01/05/24 20:42 Ketorolac Tromethamine 15 Mg/Ml Vial IVPUSH 01/05/24 19:58 15 mg ONCE ONE Administration Ondansetron HCl 4 mg 01/05/24 19:35 01/05/24 19:43 Ondansetron Hcl 4 Mg/2 Ml Vial IVPUSH 01/05/24 19:36 4 mg ONCE ONE Administration Oxycodone HCl 5 mg 01/05/24 17:44 01/05/24 17:47 Oxycodone Hcl Immed Release 5 Mg Tablet PO 01/05/24 17:45 5 mg ONCE ONE Administration Oxycodone HCl 5 mg 01/05/24 19:57 01/05/24 20:42 Oxycodone Hcl Immed Release 5 Mg Tablet PO 01/05/24 19:58 5 mg ONCE ONE Administration Penicillin G Benzathine 2,400,000 unit 01/05/24 18:10 01/05/24 19:43 Penicillin G Benzathine 2,400,000 Unit/4 Ml Syringe IM 01/05/24 18:11 2,400,000 unit ONCE ONE Administration Medical Decision Making Medical Decision Making [facility] Narrative: Patient is a 33-year-old male with history of thyroid cancer and thyroidectomy presenting to the emergency department with complaint of left-sided neck pain for the past week. On exam patient is awake, A+Ox3, VS WNL, afebrile, normal neurological exam without focal deficits, physical exam findings as above. Given reported symptoms and physical exam findings, initial differential includes recurrence of thyroid mass/CA, abscess, lymphadenopathy. Labs notable for leukocytosis, no anemia, no significant electrolyte abnormalities. Viral and strep swabs negative. CT NG pending. Patient updated RN that his boyfriend just received results of recent STI testing and is positive for syphilis. Will treat empirically with PCN G. Patient signed out to ISAÍAS Villagomez pending CT results. Differential Diagnosis Differential Diagnoses: The differential diagnosis associated with the presentation includes As per [facility] Admission/Observation Consideration of admission/observation: Escalation of care including admission/observation considered Lab Data [facility] Lab Attestation statement: I reviewed the patient's lab results. As per [facility] 01/05/24 15:34 01/05/24 15:34 Labs: Lab Results 01/05/24 Range/Units 15:34 WBC 7.6 (4.8-10.8) X10*3/uL RBC 5.34 (4.60-5.80) X10*6/uL Hgb 14.9 (14.0-18.0) g/dl Hct 43.9 (42.0-52.0) % MCV 82.2 (80.0-98.0) fL MCH 27.9 (27.0-33.0) pg MCHC 33.9 (31.0-36.0) g/dl RDW 13.1 (11.0-16.0) % Plt Count 304 (160-400) X10*3/uL MPV 8.5 L (9.4-12.4) fL Immature Gran % (Auto) 0.3 (0.0-0.4) % Neut % (Auto) 58.5 (45-73) % Lymph % (Auto) 32.3 (20-40) % [place] % (Auto) 6.1 (2-11) % Eos % (Auto) 2.1 (0-4) % Baso % (Auto) 0.7 (0-2) % Lymph # (Auto) 2.5 (1.2-4.9) X10*3/uL [place] # (Auto) 0.5 (0.1-1.2) X10*3/uL Eos # (Auto) 0.2 (0.0-0.4) X10*3/uL Baso # (Auto) 0.1 (0.0-0.2) X10*3/uL Abs Immat Gran (auto) 0.02 (0.00-0.03) X10*3/uL Absolute Neuts (auto) 4.5 (2.0-8.3) x10*3/uL Absolute Nucleated RBC 0.000 (0.0-0.012) X10*3/uL Nucleated RBC % (auto) 0.0 (0.0-0.2) /100WBC Sodium 139 (135-145) mmol/L Potassium 4.1 (3.3-5.1) mmol/L Chloride 102 (96-108) mmol/L Carbon Dioxide 29 (22-29) mmol/L Anion Gap 12 (12-20) BUN 12 (9-16) mg/dL Creatinine 0.90 (0.5-1.4) mg/dL Estim Creat Clear Calc 149.6 Estimated GFR > 60 Random Glucose 108 (60-115) mg/dL Calcium 9.3 (8.4-10.2) mg/dL Magnesium 2.1 (1.6-2.6) mg/dL Total Bilirubin 0.4 (0.0-1.0) mg/dL AST 21 (5-37) U/L ALT 24 (0-40) U/L Alkaline Phosphatase 80 (39-117) U/L Total Protein 7.3 (6.5-8.0) g/dL Albumin 4.1 (3.5-5.0) g/dL TSH 0.07 L (0.32-4.0) uIU/mL Free T4 1.53 (0.71-1.85) ng/dL Influenza Type A (PCR) NEGATIVE (Negative) Influenza Type B (PCR) NEGATIVE (Negative) RSV RNA Qual (PCR) NEGATIVE (Negative) SARS-CoV-2 RNA (RT-PCR) NEGATIVE (Negative) S. pyogenes GrpA PRASHANT Negative (Negative) External Record Review External record reviewed: Inpatient record, Office record and Outpatient record Prescription Management I considered prescription management with: Antibiotic Discharge Plan Discharge Clinical Impression: Acute neck pain Patient Disposition: Home, Self-Care Instructions: Neck Pain (ED) Additional Instructions: Your workup in the ER today was reassuring. This includes your blood work and CT scan. There was no evidence of recurrent mass or signs of infection Use ibuprofen/Tylenol for pain. You may also use warm compresses Follow-up with your primary doctor Return for new or worsening symptoms Prescriptions: No Action doxycycline hyclate 100 mg capsule 100 mg PO BID 7 Days Qty: 14 0RF hydrocodone-acetaminophen 5-325 mg tablet 1 tab PO Q8H PRN (Reason: pain, severe) 3 Days Qty: 5 0RF Rx Instructions: Partial Fill upon patient request. lidocaine [Lidoderm] 5 % adhesive patch,medicated 1 patch topical DAILY MDD remove after 12 hours PRN (Reason: pain) Qty: 30 0RF Rx Instructions: leave on most painful area for up to 12 hrs naproxen 500 mg tablet 500 mg PO BID PRN (Reason: pain) 10 Days Qty: 20 0RF cyclobenzaprine 5 mg tablet 5 mg PO Q8H PRN (Reason: pain (scale score 7-10)) 5 Days Qty: 14 0RF hydrocodone-acetaminophen 5-325 mg tablet 1 tab PO Q6H PRN (Reason: pain) Qty: 8 0RF Rx Instructions: partial fill okay; Partial Fill upon patient request. naproxen [Naprosyn] 500 mg tablet 500 mg PO BID PRN (Reason: pain) Qty: 14 0RF Print Language: Slovenian
[2024-01-05 14:08] VITALS: BP 145/94; PULSE 100; RESP 18; TEMP 36.7; O2SAT 99; BMI 45.8
[2024-01-05 15:54] LABS: MANUAL DIFF FLAG NO
[2024-01-05 15:59] LABS: Basophils Absolute Auto 0.1 X10*3/uL (0.0-0.2); Basophils Percent Auto 0.7 % (0-2); Eosinophils Absolute Auto 0.2 X10*3/uL (0.0-0.4); Eosinophils Percent Auto 2.1 % (0-4); Hematocrit 43.9 % (42.0-52.0); Hemoglobin 14.9 g/dl (14.0-18.0); Imm Gran Abs Auto 0.02 X10*3/uL (0.00-0.03); Imm Gran Pct Auto 0.3 % (0.0-0.4); Lymphocytes Absolute Auto 2.5 X10*3/uL (1.2-4.9); Lymphocytes Percent Auto 32.3 % (20-40); Mean Corpuscular HGB Conc 33.9 g/dl (31.0-36.0); Mean Corpuscular Hemoglobin 27.9 pg (27.0-33.0); Mean Corpuscular Volume 82.2 fL (80.0-98.0); Mean Platelet Volume 8.5 fL (9.4-12.4); Monocytes Absolute Auto 0.5 X10*3/uL (0.1-1.2); Monocytes Percent Auto 6.1 % (2-11); Neutrophils Absolute Auto 4.5 x10*3/uL (2.0-8.3); Neutrophils Percent Auto 58.5 % (45-73); Platelet Count 304 X10*3/uL (160-400); Red Blood Count 5.34 X10*6/uL (4.60-5.80); Red Cell Distribution Width 13.1 % (11.0-16.0); White Blood Count 7.6 X10*3/uL (4.8-10.8)
[2024-01-05 16:20] LABS: Alanine Aminotransferase 24 U/L (0-40); Albumin Level 4.1 g/dL (3.5-5.0); Alkaline Phosphatase 80 U/L (39-117); Anion Gap 12 (12-20); Aspartate Amino Transferase 21 U/L (5-37); Bilirubin Total 0.4 mg/dL (0.0-1.0); Blood Urea Nitrogen 12 mg/dL (9-16); Calcium 9.3 mg/dL (8.4-10.2); Carbon Dioxide 29 mmol/L (22-29); Chloride 102 mmol/L (96-108); Creatinine Clr Calc Pharmacy 149.6; Estimated Glomerular Filt Rate > 60; Glucose Random 108 mg/dL (60-115); Magnesium 2.1 mg/dL (1.6-2.6); Potassium 4.1 mmol/L (3.3-5.1); Sodium 139 mmol/L (135-145); Total Protein 7.3 g/dL (6.5-8.0)
[2024-01-05 16:22] LABS: IDNOW Serial# 08D9AD1C; Strep A Nucleic Acid Negative (Negative)
[2024-01-05 16:37] LABS: Influenza A PCR NEGATIVE (Negative); Influenza B PCR NEGATIVE (Negative); Resp Syncy Virus RNA Qual PCR NEGATIVE (Negative); SARS COV2 PCR INHOUSE NEGATIVE (Negative)
[2024-01-05] MEDS: oxyCODONE HCl Immed Release 5 MG TABLET PO ×2 (17:47→20:42)
[2024-01-05 18:22] LABS: TSH reflex Free T4 0.07 uIU/mL (0.32-4.0)
--- NOTE | 2024-01-05 18:31 | PC.NURSE ---
Pt is calm in room, PO intake provided for patient along with blankets for comfort. He is a/ox4, does need some time to answer questions d/t his speech impairment. IV placed for CT scan, PO medications given, pt will have someone come and pick him up when time to d/c. Pt partner just found out he was positive for syphilis, prophylactic treatment placed
[2024-01-05] MEDS: iohexoL 350 MG/ML 100 ML INFUS..BTL 60 ML IV (19:34)
[2024-01-05 19:35] LABS: Free T4 (Free Thyroxine) 1.53 ng/dL (0.71-1.85)
[2024-01-05] MEDS: ondansetron HCL 4 MG/2 ML VIAL IVPUSH (19:43)
[2024-01-05] MEDS: Penicillin G Benzathine 2,400,000 UNIT/4 ML SYRINGE 2400000 UNIT IM (19:43)
[2024-01-05 20:06] VITALS: BP 129/83; PULSE 90; RESP 16; TEMP 36.8; O2SAT 94
[2024-01-05] MEDS: Ketorolac Tromethamine 15 MG/ML VIAL IVPUSH (20:42)
[2024-01-05 23:21] VITALS: BP 129/86; PULSE 88; RESP 16; TEMP 36.6; O2SAT 97
[2024-01-06 04:12] LABS: CT PCR NOT DETECTED (Not Detect.); NG PCR NOT DETECTED (Not Detect.)
[2024-01-06 09:33] LABS: Syphilis Screen Nonreactive (Nonreactive)
== END 2024-01-05 23:21 | disposition home or self-care (01) ==
PROVIDERS: Physician Assistant Medical; Registered Nurse Emergency; Emergency Provider Emergency Medicine
DX: M54.2 Cervicalgia (principal); J02.9 Acute pharyngitis, unspecified; H92.02 Otalgia, left ear; E89.0 Postprocedural hypothyroidism; Z20.2 Contact with and (suspected) exposure to infections with a predominantly sexual mode of transmission; Z03.818 Encounter for observation for suspected exposure to other biological agents ruled out; Z85.850 Personal history of malignant neoplasm of thyroid
CPT/HCPCS: 0241U; 0353U; 36415; 70491; 80053; 83735; 84439; 84443; 85025; 86780; 87651; 96372; 96374; 96375; 99284; J0561; J1885; J2405; Q9967

== ENCOUNTER → 2025-01-30 20:46 | Outpatient (BNV) | payer MEDICAID, SELFPAY | PROVIDERS: Visit Provider Radiology Diagnostic Radiology | DX: M51.360 Other intervertebral disc degeneration, lumbar region with discogenic back pain only (principal) | CPT/HCPCS: 72100 ==

== ENCOUNTER 2025-01-30 21:18 | Emergency (ER) | payer MEDICAID, SELFPAY ==
--- NOTE | ~2025-01-30 | XR_ITS ---
CLINICAL HISTORY: pain s p fall Lumbar spine three views Comparison: None provided Findings: No acute fracture or dislocation. Posterior alignment is normal. Mild degenerative change. No radiopaque foreign bodies. Impression: No acute processes This document has been electronically signed by: Glenn Azul MD on 01/30/2025 22:02:32
[2025-01-30 21:30] VITALS: BP 151/104; PULSE 88; RESP 18; TEMP 36.4; O2SAT 97; BMI 41.6
[2025-01-31 00:13] VITALS: BP 132/86; PULSE 76; RESP 16; TEMP 36.8; O2SAT 97
--- NOTE | 2025-01-31 01:10 | ED_ITS ---
HPI - Back Pain/Injury General Chief Complaint: Back Pain/Injury Stated Complaint: back pain from chair fall Time Seen by Provider: 01/31/25 00:23 History of Present Illness ED Provider: Rafal Santana MD HPI Narrative: This is a pleasant otherwise healthy 34-year-old male who sat on a folding chair today he says it essentially collapsed. On its way down 1 of the legs jammed into his sacral region and basically impaled him on that. No breaks in the skin he has been able to ambulate but has significant pain and tenderness at the site. No other injuries or complaints. Related Data Previous Rx's ?Medication ?Instructions ?Recorded doxycycline hyclate 100 mg capsule 100 mg PO BID 7 day s #14 caps 08/21/20 cyclobenzaprine 5 mg tablet 5 mg PO Q8H PRN pain (scal e score 01/18/22 7-10) 5 days #14 tabs hydrocodone 5 mg-acetaminophen 325 1 tab PO Q8H PRN pa in, severe 3 01/18/22 mg tablet days #5 tabs lidocaine 5 % topical patch 1 patch topical DAILY PRN pain #30 01/18/22 (Lidoderm) ea naproxen 500 mg tablet 500 mg PO BID PRN pain 10 da ys #20 01/18/22 tabs hydrocodone 5 mg-acetaminophen 325 1 tab PO Q6H PRN pa in #8 tabs 03/01/22 mg tablet naproxen 500 mg tablet (Naprosyn) 500 mg PO BID PRN pa in #14 tabs 01/06/23 doxycycline hyclate 100 mg capsule 100 mg PO BID 10 da ys #20 caps 01/31/25 morphine 15 mg immediate release 15 mg PO BID PRN pain #5 tabs 01/31/25 tablet Allergies Allergy/AdvReac Type Severity Reaction Status Date / Time clarithromycin (Prevpac) Allergy Unknown Unknown Verified 01/30/25 21:33 dexamethasone Allergy Unknown Unknown Verified 01/30/25 21:33 esomeprazole (Nexium) Allergy Unknown Unknown Verified 01/30/25 21:33 lansoprazole (Prevpac) Allergy Unknown Unknown Verified 01/30/25 21:33 omeprazole (From PRILOSEC) Allergy Unknown RASH Verified 01/30/25 21:33 [facility] Past Medical History Medical History Ear problem Thyroid mass TIA (transient ischemic attack) Social History Social History Alcohol intake: never Patient Tobacco Use Status: Never used Tobacco Advance Directives: No Advance Directives Information Provided: Yes Physical Exam Vital Signs: Vital Signs: Last Vital Signs Temp 98.7 F 01/31/25 01:25 Pulse 75 01/31/25 01:25 Resp 16 01/31/25 01:25 BP 139/100 H 01/31/25 01:25 Pulse Ox 98 01/31/25 01:25 O2 Del Method Room Air 01/31/25 01:25 BMI result Body Mass Index 41.6 Const: Other: EXAM: Gen: Alert, awake, well appearing, well hydrated. Head: Atraumatic Eyes: Anicteric, Normal conjunctiva. ENT: Moist mucosa, no pallor. ? Neck: Supple. Skin: ?No observable rash or bruising on exposed or examined skin Respiratory: Breathing comfortably, No distress.Clear to auscultation bilaterally, symmetric chest expansion, No wheeze, rales, ronchi. Cardiovascular: Regular rate and rhythm. No murmurs or rub. Well perfused periphery, warm extremities. No edema. ? Abdominal: No FOCAL TENDERNESS. Soft, no objective distension. No palpable masses or obvious organomegaly. ?No guarding, no rebound tenderness or other peritoneal findings. : No flank tenderness. Neuro: Alert. Gross movement of all extremities intact. ? Psych: Calm. Cooperative. MSK: No grossly visible deformity. Focal tenderness superior sacral region. No bruising no breaks in the skin steady gait. Vital signs: See flowsheet Medical Decision Making Medical Decision Making MDM Narrative: 34-year-old male with low mechanism fall/low back injury. On examination he does not have a pelvic deformity or instability and he is walking with a steady gait. Likely sacral contusion. P.r.n. morphine, patient also points out torso acne he asks me if I can prescribe him doxycycline for 10 days as this is helped in the past he does have some scattered folliculitis and/or pustules consistent with acne on the chest I see no contraindication to start this at this time. Discharge Plan Discharge Clinical Impression: Contusion of sacral region, Acne Patient Disposition: Home, Self-Care Instructions: Contusion in Adults (ED) Additional Instructions: In the emergency department an x-ray of the lumbar spine without acute bony injury. Your examination suggest contusion of your sacral low back region. Prescriptions: New doxycycline hyclate 100 mg capsule 100 mg PO BID 10 Days Qty: 20 0RF morphine 15 mg tablet 15 mg PO BID PRN (Reason: pain) Qty: 5 0RF Rx Instructions: Partial Fill upon patient request. No Action doxycycline hyclate 100 mg capsule 100 mg PO BID 7 Days Qty: 14 0RF hydrocodone-acetaminophen 5-325 mg tablet 1 tab PO Q8H PRN (Reason: pain, severe) 3 Days Qty: 5 0RF Rx Instructions: Partial Fill upon patient request. lidocaine [Lidoderm] 5 % adhesive patch,medicated 1 patch topical DAILY MDD remove after 12 hours PRN (Reason: pain) Qty: 30 0RF Rx Instructions: leave on most painful area for up to 12 hrs naproxen 500 mg tablet 500 mg PO BID PRN (Reason: pain) 10 Days Qty: 20 0RF cyclobenzaprine 5 mg tablet 5 mg PO Q8H PRN (Reason: pain (scale score 7-10)) 5 Days Qty: 14 0RF hydrocodone-acetaminophen 5-325 mg tablet 1 tab PO Q6H PRN (Reason: pain) Qty: 8 0RF Rx Instructions: partial fill okay; Partial Fill upon patient request. naproxen [Naprosyn] 500 mg tablet 500 mg PO BID PRN (Reason: pain) Qty: 14 0RF Stand Alone Forms: Work/School Release Interventions: ED Discharge Assessment Last Done: 01/31/25 01:25 Discharge Date/Time: 01/31/25 01:26 Print Language: [place] Helen[place]
[2025-01-31 01:25] VITALS: BP 139/100; PULSE 75; RESP 16; TEMP 37.1; O2SAT 98
== END 2025-01-31 01:26 | disposition home or self-care (01) ==
PROVIDERS: Emergency Provider Emergency Medicine
DX: S30.0XXA Contusion of lower back and pelvis, initial encounter (principal); W07.XXXA Fall from chair, initial encounter; L70.9 Acne, unspecified; Y93.89 Activity, other specified; Y92.9 Unspecified place or not applicable; Y99.9 Unspecified external cause status
CPT/HCPCS: 72100; 99283; 99284

== ENCOUNTER 2025-06-17 04:22 | Emergency (ER) | payer SELFPAY ==
--- NOTE | ~2025-06-17 | XR_ITS ---
CLINICAL HISTORY: weakness 2 view chest x-ray Comparison: CR/SR - XR CHEST 2 VIEWS - 01/06/23 13:15 EDT Findings: No consolidation or effusion. Normal size heart. No acute fracture. IMPRESSION: No acute cardiopulmonary findings. This document has been electronically signed by: Ben Fitzgerald MD on 06/17/2025 08:29:10
[2025-06-17 04:26] VITALS: BP 174/116; PULSE 86; RESP 20; TEMP 36.8; O2SAT 100; BMI 48.4
--- OUTSIDE RECORDS SUMMARY | 2025-06-17 04:43 | XMS_ITS | Encounter Summary ---
Author Organization [facility] Address [address] [place] [address] Phone Care Team Providers Care Police Detention Attendant Name Role Phone Song Woodard MD Primary Care Provider [phone] [phone] Jacinta Childers MD Primary Care Provider [phone] [phone] Pcp, Unknown Primary Care Provider Unavailabl e Encounter Details Date Type Department Care Team (Late st Contact Info) Description 01/09/2023 Procedure Pass [facility] Radiology [address] [place] [address] Social History Tobacco Use Types Packs/Day Years Used Date Smoking Tobacco: Former Cigarettes 2020 Smokeless Tobacco: Never Comments:pt stated (05/28/20 22) he quit somoking month ago Alcohol Use Standard Drinks/Week Comments Yes 0 (1 standard drink = 0.6 oz pur e alcohol) occ Education Answer Date Recorded Are you interested in more education? Not on mao e 12/05/2022 Are you concerned about learning? Not on file 12/05/2022 No 12/05/2022 No 12/05/2022 Digital Access Answer Date Recorded No 12/30/2022 No 12/30/2022 Reliable internet access at home? Not on file 12/30/2022 Device with a working camera? Not on file Sex and Gender Information Value Date Recorded Sex Assigned at Male 07/21/2018 5:10 PM EST Legal Sex Male 10:08 PM EDT Gender Identity Male 07/21/2018 5:10 PM EST Sexual Orientation Choose not to disclose 2017 10:41 PM EDT documented as of this encounter Plan of Treatment Upcoming Encounters Date Type Department Care Team (Late st Contact Info) Description 03/09/2025 Procedure Pass [facility] Radiology [address] [place] [address] 06/28/2025 2:40 PM EST Office Visit [facility]- [address] [address] Misa Munoz MD [address] [place] [address] [email or web address] 12/26/2025 2:15 PM EDT Appointment [facility]iology [address] [place] [address] Clary Fernandez MD [address] [place] [address] [email or web address] 12/26/2025 3:00 PM EDT Appointment [facility] [address] [place] [address] Clary Fernandez MD [address] [place] [address] [email or web address] 12/26/2025 4:20 PM EDT Office Visit [facility] Endocrine, Diabetes, and Hypertension [address] [place] [address] [address] [place] [address] Clary Fernandez MD [address] [place] [address] [email or web address] documented as of this encounter Visit Diagnoses Not on filedocumented in this encounter Additional Health Concerns Assessment Noted Time PHQ-2 Depression Total Score: 2 11/18/19 23 10:18 AM EDT documented as of this encounter Care Teams Police Detention Attendant Relationship Specialty Start Date End Date Song Woodard MD [address] [place] [address] PCP - General Internal Medicine 07/21/18 04/05/23 Jacinta Childers MD [address] [place] [address] [email or web address] PCP - General Internal Medicine 04/06/23 05/08/25 Pcp, Unknown PCP - General 05/09/25 documented as of this encounter Additional Source Comments The information contained in this document represents components of the legal health record. It is not the complete legal health record.[facility]
--- OUTSIDE RECORDS SUMMARY | 2025-06-17 04:43 | XMS_ITS | Encounter Summary ---
Author Organization [facility] Address [address] [place] [address] Phone Care Team Providers Care Cloth Bleaching Range Back Tender Name Role Phone Song Woodard MD Primary Care Provider [phone] [phone] Jacinta Childers MD Primary Care Provider [phone] [phone] Pcp, Unknown Primary Care Provider Unavailabl e Encounter Details Date Type Department Care Team (Late st Contact Info) Description 10/24/2022 Procedure Pass [facility] Per[facility] 1st floor [address] [place] [address] Social History Tobacco Use Types Packs/Day Years Used Date Smoking Tobacco: Former Cigarettes 2020 Smokeless Tobacco: Never Comments:pt stated (05/28/20) he quit somoking month ago Alcohol Use Standard Drinks/Week Comments Yes 0 (1 standard drink = 0.6 oz pur e alcohol) occ Sex and Gender Information Value Date Recorded Sex Assigned at Male 07/21/2018 5:10 PM EST Legal Sex Male 10:08 PM EDT Gender Identity Male 07/21/2018 5:10 PM EST Sexual Orientation Choose not to disclose 2017 10:41 PM EDT documented as of this encounter Functional Status * Calculated C-SSRS Risk Score (Lifetime/Recent) Answer Date of Assessment Author No Risk Indicated 10/24/2022 10:00 PM EDT Rosaura Dubose, RN * Benson Suicide Severity Rating Scale (Screener/Recent Self-Report) Question Answer Date of Assessment Author 1. Wish to be (Past 1 Month) No 023 10:00 PM EDT Rosaura Morales RN 2. Non-Specific Active Suici sarah Thoughts (Past 1 Month) No 10/24/2022 10:00 PM EDT Reena Morales RN 6. Suicidal Behavior (Lifetime) No 10:00 PM EDT Rosaura Morales, STACEY documented as of this encounter Plan of Treatment Upcoming Encounters Date Type Department Care Team (Late st Contact Info) Description 03/09/2025 Procedure Pass [facility] Radiology [address] [place] [address] 06/28/2025 2:40 PM EST Office Visit [facility]- Gastroenterology [address] [address] Misa Munoz MD [address] [place] [address] [email or web address] 12/26/2025 2:15 PM EDT Appointment [facility] Radiology [address] [place] [address] Clary Fernandez MD [address] [place] [address] [email or web address] 12/26/2025 3:00 PM EDT Appointment [facility] Radiology [address] [place] [address] Clary Fernandez MD [address] [place] [address] [email or web address] 12/26/2025 4:20 PM EDT Office Visit [facility] Endocrine, Diabetes, and Hypertension [address] [place] [address] Clary Fernandez MD [address] [place] [address] [email or web address] documented as of this encounter Visit Diagnoses Not on filedocumented in this encounter Additional Health Concerns Infection Onset Date Last Indicated Resolved Time COVID-19 10/24/2022 10/24/2022 11/14/2022 1:21 AM EDT documented as of this encounter Care Teams Cloth Bleaching Range Back Tender Relationship Specialty Start Date End Date Song Woodard MD [address] [place] [address] PCP - General Internal Medicine 07/21/18 04/05/23 Jacinta Childers MD [address] [place] [address] [email or web address] PCP - General Internal Medicine 04/06/23 05/08/25 Pcp, Unknown PCP - General 05/09/25 documented as of this encounter Additional Source Comments The information contained in this document represents components of the legal health record. It is not the complete legal health record.[facility]
--- OUTSIDE RECORDS SUMMARY | 2025-06-17 04:43 | XMS_ITS | Encounter Summary ---
Author Organization [facility] Address [address] [place] [address] [place] [address] Phone Care Team Providers Care Grinding Machine Operator Portable Name Role Phone Jacinta Childers MD Primary Care Provider [phone] [phone] Pcp, Unknown Primary Care Provider Unavailabl e Encounter Details Date Type Department Care Team (Late st Contact Info) Description 07/06/2024 Procedure Pass [facility] CT Imaging, [place] [address] [place] [address] Social History Tobacco Use Types Packs/Day Years [...] with a working camera? Not on file Intimate Partner Violence Answer Date R ecorded Are you denied basic needs s uch as food, clothing, or medical care? No 04/07/2023 In the past 12 months have y ou been in a relationship with a person who hurts, threatens, or tries to control you? No 04/07/2023 Are you denied basic needs s uch as food, clothing, or medical care? No 04/07/2023 In the past 12 months have y ou been in a relationship with a person who hurts, threatens, or tries to control you? No 04/07/2023 Sex and Gender Information Value Date Recorded Sex Assigned at Male 07/21/2018 5:10 PM EST Legal Sex Male 10:08 PM EDT Gender Identity Male 07/21/2018 5:10 PM EST Sexual Orientation Choose not to disclose 2017 10:41 PM EDT documented as of this encounter Plan of Treatment Upcoming Encounters Date Type Department Care Team (Late st Contact Info) Description 03/09/2025 Procedure Pass [facility] Radiology [address] [place] [address] 06/28/2025 2:40 PM EST [facility] [address] [address] Misa Munoz MD [address] [place] [address] [email or web address] 12/26/2025 2:15 PM EDT Appointment [facility] Radiology [address] [place] [address] Clary Fernandez MD [address] [place] [address] [email or web address] 12/26/2025 3:00 PM EDT Appointment [facility] Radiology [address] [place] [address] Clary Fernandez MD [address] [place] [address] [email or web address] 12/26/2025 4:20 PM EDT Office Visit [facility] Endocrine, Diabetes, and Hypertension [address] [place] [address] [address] [place] [address] Clary Fernandez MD [address] [place] [address] [email or web address] documented as of this encounter Visit Diagnoses Not on filedocumented in this encounter Additional Health Concerns Assessment Noted Time PHQ-2 Depression Total Score: 2 03/07/20 25 2:54 PM EDT documented as of this encounter Care Teams Grinding Machine Operator Portable Relationship Specialty Start Date End Date Jacinta Childers MD [address] [place] [address] [email or web address] PCP - General Internal Medicine 04/06/23 05/08/25 Pcp, Unknown PCP - General 05/09/25 documented as of this encounter Additional Source Comments The information contained in this document represents components of the legal health record. It is not the complete legal health record.[facility]
--- OUTSIDE RECORDS SUMMARY | 2025-06-17 04:43 | XMS_ITS | Encounter Summary ---
Author Organization [facility] Address [address] [place] [address] [place] [address] Phone Care Team Providers Care Geographic Information Systems Director Name Role Phone Jacinta Childers MD Primary Care Provider [phone] [phone] Pcp, Unknown Primary Care Provider Unavailabl e Encounter Details Date Type Department Care Team (Late st Contact Info) Description 04/15/2023 Procedure Pass [facility] MR Imaging, [place] [address] [place] [address] Social History Tobacco Use Types Packs/Day Years [...] st Contact Info) Description 03/09/2025 Procedure Pass [facility] Radiology [address] [place] [address] 06/28/2025 2:40 PM EST Office Visit [facility] [address] [address] Misa Munoz MD [address] [place] [address] [email or web address] 12/26/2025 2:15 PM EDT Appointment [facility] Radiology [address] [place] [address] Clary Fernandez MD [address] [place] [address] [email or web address] 12/26/2025 3:00 PM EDT Appointment [facility] Radiology [address] [place] [address] Clary Fernandez MD [address] [place] [address] [email or web address] 12/26/2025 4:20 PM EDT Office Visit [facility] Endocrine, Diabetes, and Hypertension [address] [place] [address] [address] [place] [address] Clary Fernandez MD [address] [place] [address] [email or web address] documented as of this encounter Visit Diagnoses Not on filedocumented in this encounter Additional Health Concerns Assessment Noted Time PHQ-2 Depression Total Score: 2 11/18/19 23 10:18 AM EDT documented as of this encounter Care Teams Geographic Information Systems Director Relationship Specialty Start Date End Date Jacinta Childers MD [address] [place] [address] [email or web address] PCP - General Internal Medicine 04/06/23 05/08/25 Pcp, Unknown PCP - General 05/09/25 documented as of this encounter Additional Source Comments The information contained in this document represents components of the legal health record. It is not the complete legal health record.[facility]
--- OUTSIDE RECORDS SUMMARY | 2025-06-17 04:43 | XMS_ITS | Encounter Summary ---
Author Organization [facility] Address [address] [place] [address] [address] [place] [address] Phone Care Team Providers Care Trial Manager Name Role Phone Jacinta Childers MD Primary Care Provider [phone] [phone] Pcp, Unknown Primary Care Provider Unavailabl e Encounter Details Date Type Department Care Team (Late st Contact Info) Description 01/03/2025 Procedure Pass [facility] [address] [place] [address] Social History Tobacco Use Types Packs/Day Years [...] st Contact Info) Description 03/09/2025 Procedure Pass [facility] Radiology [address] [place] [address] 06/28/2025 2:40 PM EST Office Visit [facility]- [address] [address] Misa Munoz MD [address] [place] [address] [email or web address] 12/26/2025 2:15 PM EDT Appointment [facility] Radiology [address] [place] [address] Clary Fernandez MD [address] [place] [address] [email or web address] 12/26/2025 3:00 PM EDT Appointment [facility] Radiology [address] [place] [address] Clary Fernandez MD [address] [place] [address] [email or web address] 12/26/2025 4:20 PM EDT Office Visit [facility] Endocrine, Diabetes, and Hypertension [address] [place] [address] [address] [place] [address] Clary Fernandez MD [address] [place] [address] [email or web address] documented as of this encounter Visit Diagnoses Not on filedocumented in this encounter Additional Health Concerns Assessment Noted Time PHQ-2 Depression Total Score: 6 05/10/20 24 10:01 AM EDT documented as of this encounter Care Teams Trial Manager Relationship Specialty Start Date End Date Jacinta Childers MD [address] [place] [address] [email or web address] PCP - General Internal Medicine 04/06/23 05/08/25 Pcp, Unknown PCP - General 05/09/25 documented as of this encounter Additional Source Comments The information contained in this document represents components of the legal health record. It is not the complete legal health record.[facility]
--- OUTSIDE RECORDS SUMMARY | 2025-06-17 04:43 | XMS_ITS ---
Author Name [facility] Organization Unknown Results Test Name/Text Value Interpretation Date Range Source BASOPHILS IN BLOOD BY AUTOMATED COUNT 0.1 K/uL Normal 02/03/2024 0 - 0.2 [facility] LYMPHOCYTES NO. BLD AUTO 1.9 K/uL Normal 02/03/2024 1 - 3.2 [facility] RDW RBC AUTO RTO 13.2 % Normal 02/03/2024 12.1 - 17.7 [facility] RBC NO. BLD AUTO 4.86 M/uL Normal 02/03/2024 4.7 - 6 CT [facility] MONOCYTES NO. BLD AUTO 0.6 K/uL Normal 02/03/2024 0 - 0. 8 [facility] BASOPHILS NFR BLD AUTO 0.7 % Normal 02/03/2024 0 - 2 [facility] IMMATURE GRANULOCYTE, ABSOLUTE 0.03 k/uL Normal 02/03/2024 - 0.1 [facility] LYMPHOCYTES NFR BLD AUTO 25.1 % Normal 02/03/2024 20 - 48 [facility] MCH RBC QN AUTO 28.2 pg Normal 02/03/2024 25 - 33 [facility] NUCLEATED RBC 0.0 % Normal 02/03/2024 0 - 1 [facility] MCV RBC AUTO 82.5 fL Normal 02/03/2024 78 - 100 [facility] H MCHC RBC AUTO MCNC 34.2 g/dL Normal 02/03/2024 32 - 36 [facility] HCT VFR BLD AUTO 40.1 % Normal 02/03/2024 40 - 54 CT [facility] MONOCYTES NFR BLD AUTO 7.4 % Normal 02/03/2024 2 - 12 [facility] IMMATURE GRANULOCYTE, PERCENT 0.4 % Normal 02/03/2024 0 - 1 [facility] PMV BLD AUTO 8.5 fL Normal 02/03/2024 7.4 - 11.4 [facility] MH HGB BLD MCNC 13.7 g/dL Normal 02/03/2024 13.5 - 18 [facility] EOSINOPHIL NO. BLD AUTO 0.1 K/uL Normal 02/03/2024 0 - 0 .[facility] WBC NO. BLD AUTO 7.6 K/uL Normal 02/03/2024 4 - 10.5 [facility] PLATELET NO. BLD AUTO 296.0 K/uL Normal 02/03/2024 150 - 450 [facility] EOSINOPHIL NFR BLD AUTO 1.8 % Normal 02/03/2024 0 - 6 [facility] NEUTROPHILS NO. BLD AUTO 4.9 K/uL Normal 02/03/2024 1.8 - 7.8 [facility] NEUTROPHILS NFR BLD AUTO 64.6 % Normal 02/03/2024 44 - 74 [facility] Troponin I SerPl HS-mCnc 3.0 ng/L Normal 02/03/2024 0 - 20 [facility] CHLORIDE SERPL SCNC 99.0 mmol/L Normal 02/03/2024 98 - 10 7 [facility] Glomerular filtration rate/1.73 sq M. predicted 91.0 Normal 02/03/2024 60 - [facility] CREAT SERPL MCNC 1.1 mg/dL Normal 02/03/2024 0.7 - 1.3 [facility] POTASSIUM SERPL SCNC 4.1 mmol/L Normal 02/03/2024 3.5 - 5 .1 [facility] HCO3 SER SCNC 30.0 mmol/L Normal 02/03/2024 24 - 32 [facility] BUN SERPL MCNC 15.0 mg/dL Normal 02/03/2024 9 - 20 [facility] ANION GAP SERPL SCNC 6.0 mmol/L Normal 02/03/2024 5 - 14 [facility] SODIUM SERPL SCNC 135.0 mmol/L Normal 02/03/2024 135 - 14 5 [facility] GLUCOSE SERPL MCNC 106.0 mg/dL Normal 02/03/2024 70 - 199 [facility] CALCIUM SERPL MCNC 9.1 mg/dL Normal 02/03/2024 8.4 - 10.2 [facility] Encounters Encounter Type Encounter Reason Primary Diagnosis Location Date Emergency Otitic barotrauma, initial encounter Otitic barotrauma, initial encounter [facility] 02/03/2024 Care Team Organization Name Specialty Phone Email Start Date End Da serge [facility] 02/03/2024 [facility] Primary [facility] 02/03/2024 02/21/2025
--- OUTSIDE RECORDS SUMMARY | 2025-06-17 04:43 | XMS_ITS | Encounter Summary ---
Author Organization [facility] Address [address] [place] [address] [place] [address] Phone Care Team Providers Care Regional Coordinator Name Role Phone Jacinta Childers MD Primary Care Provider [phone] [phone] Pcp, Unknown Primary Care Provider Unavailabl e Encounter Details Date Type Department Care Team (Late st Contact Info) Description 07/06/2024 Procedure Pass [facility] CT Imaging, [place] [address] [place] [address] Social History Tobacco Use Types Packs/Day Years [...] st Contact Info) Description 03/09/2025 Procedure Pass [facility] Radiology [address] [place] [address] 06/28/2025 2:40 PM EST Office Visit [facility] [address] [address] Misa Munoz MD [address] [place] [address] [email or web address] 12/26/2025 2:15 PM EDT Appointment [facility] Radiology [address] [place] [address] Clary Fernandez MD [address] [place] [address] [email or web address] 12/26/2025 3:00 PM EDT Appointment [facility] Radiology [address] [place] [address] Clary Fernandez MD [address] [place] [address] [email or web address] 12/26/2025 4:20 PM EDT Office Visit [facility] Endocrine, Diabetes, and Hypertension [address] [place] [address] 2[address] [place] [address] Clary Fernandez MD [address] [place] [address] [email or web address] documented as of this encounter Visit Diagnoses Not on filedocumented in this encounter Additional Health Concerns Assessment Noted Time PHQ-2 Depression Total Score: 2 03/07/20 25 2:54 PM EDT documented as of this encounter Care Teams Regional Coordinator Relationship Specialty Start Date End Date Jacinta Childers MD [address] [place] [address] [email or web address] PCP - General Internal Medicine 04/06/23 05/08/25 Pcp, Unknown PCP - General 05/09/25 documented as of this encounter Additional Source Comments The information contained in this document represents components of the legal health record. It is not the complete legal health record.[facility]
--- OUTSIDE RECORDS SUMMARY | 2025-06-17 04:43 | XMS_ITS | Encounter Summary ---
Author Organization [facility] Address [address] [facility] [address] [place] [address] Phone Care Team Providers Care Licensing Representative Name Role Phone Song Woodard MD Primary Care Provider [phone] [phone] Jacinta Childers MD Primary Care Provider [phone] [phone] Pcp, Unknown Primary Care Provider Unavailabl e Encounter Details Date Type Department Care Team (Late st Contact Info) Description 07/16/2022 Procedure Pass [facility] Radiology [address] [place] [address] Social History Tobacco Use Types Packs/Day Years Used Date Smoking Tobacco: Former Cigarettes Smokeless Tobacco: Never Comments:pt stated (05/28/20 22) [...] st Contact Info) Description 03/09/2025 Procedure Pass [facility] Radiology [address] [place] [address] 06/28/2025 2:40 PM EST Office Visit [facility]- [address] [address] Misa Munoz MD [address] [place] [address] [email or web address] 12/26/2025 2:15 PM EDT Appointment [facility] Radiology [address] [place] [address] Clary Fernandez MD [address] [place] [address] [email or web address] 12/26/2025 3:00 PM EDT Appointment [facility] Radiology [address] [place] [address] Clary Fernandez MD [address] [place] [address] [email or web address] 12/26/2025 4:20 PM EDT Office Visit [facility] Endocrine, Diabetes, and Hypertension [address] [place] [address] Clary Fernandez MD [address] [place] [address] [email or web address] documented as of this encounter Visit Diagnoses Not on filedocumented in this encounter Additional Health Concerns Infection Onset Date Last Indicated Resolved Time CoV-Risk 09/21/2022 09/21/2022 10/02/2022 1:25 AM EST COVID-19 10/24/2022 10/24/2022 11/14/2022 1:21 AM EDT documented as of this encounter Care Teams Licensing Representative Relationship Specialty Start Date End Date Song Woodard MD [address] [place] [address] PCP - General Internal Medicine 07/21/18 04/05/23 Jacinta Childers MD [address] [place] [address] [email or web address] PCP - General Internal Medicine 04/06/23 05/08/25 Pcp, Unknown PCP - General 05/09/25 documented as of this encounter Additional Source Comments The information contained in this document represents components of the legal health record. It is not the complete legal health record.[facility]
--- OUTSIDE RECORDS SUMMARY | 2025-06-17 04:43 | XMS_ITS | Clinical Summary ---
Author Organization [facility] Address [address] [place] [address] Phone Care Team Providers Care Primary Substance Abuse Counselor Name Role Phone Pcp, Unknown Primary Care Provider Unavailabl e Allergies Active Allergy Reactions Criticality Noted Date Comments Azithromycin Rash Low 04/28/2022 Clonidine 11/27/2022 Esomeprazole Rash,Oral Ulcers Medium 10/28/2021 Increased ulcers Esomeprazole Magnesium GI Upset 06/12/2018 Gastric Ulcers Omeprazole Sodium Rash Low 10/28/2021 Increased ulcers Omeprazole GI Upset 06/12/2018 Gastric Ulcers Adhesive Low 05/05/2022 swelling Medications ibuprofen (ADVIL,MOTRIN) 800 MG tablet Take 800 mg by mouth every 8 (eight) hours as needed. 10/29/19 22 Active calcium carbonate 500 mg (200 mg elemental) chewable tablet Take 500 mg by mouth. 04/07/20 22 Active cetirizine (ZYRTEC) 10 MG tablet Take 10 mg by mouth daily. Active acetaminophen (TYLENOL) 325 mg tablet Take 2 tablets (650 mg total) by mouth every 6 (six) hours as needed. 0 10/26/19 23 Active methocarbamoL (ROBAXIN) 500 MG tablet Take 2 tablets (1,000 mg total) by mouth 4 (four) times a day. 240 tablet 5 12/30/19 23 Active Additional Information Patient not taking.Reported on 03/07/2025 ALPRAZolam (XANAX) 1 MG tablet Take 1 mg by mouth 3 (three) times a day as needed for anxiety. 05/05/20 24 Active loperamide (IMODIUM A-D) 2 mg tablet Take 1 Tab by mouth 4 times daily as needed for Diarrhea. Active albuterol 90 mcg/actuation inhaler Inhale 2 puffs into the lungs every 6 (six) hours as needed for wheezing. Active ondansetron (ZOFRAN-ODT) 4 MG disintegrating tabletIndications: Thyroid cancer Take 1 tablet (4 mg total) by mouth every 12 (twelve) hours as needed for nausea. 30 tablet 1 03/07/20 25 Active levothyroxine (SYNTHROID, LEVOTHROID) 200 MCG tablet Take one tablet daily Thursday to Thursday, take one and a half tablets on Thursday and Sundays 105 tablet 4 03/08/20 25 Active doxycycline monohydrate (MONODOX) 100 MG capsule Take 1 capsule (100 mg total) by mouth daily. 30 capsule 3 03/29/20 25 Active Active Problems Problem Noted Date Diagnosed Date S/P thyroid surgery 10/24/2022 Sleep apnea 10/20/2022 Overview (10/20/2022): apnea noted by surgeon patient never tested Adverse effect of anesthetic 10/20/2022 Overview (10/20/2022): delayed emergence Anxiety 10/20/2022 Cerebrovascular accident (CVA) 10/20/2022 Overview (10/20/2022): 3 or 4 years old patient states he thinks it was after MMR vaccine Gastric ulcer 10/20/2022 Overview (10/20/2022): childhood Dysphagia 10/20/2022 TIA (transient ischemic attack) 10/20/2022 Stuttering 10/20/2022 Post-operative nausea and vomiting 10/20/2022 Motion sickness 10/20/2022 Mood disorder 05/09/2022 S/P thyroidectomy 05/09/2022 Allergic rhinitis 04/30/2022 Chronic pain syndrome 04/30/2022 Class 2 obesity 04/30/2022 Disorder of brain 04/30/2022 Irritable bowel syndrome 04/30/2022 Bipolar disorder 04/30/2022 Severe obesity 04/30/2022 Speech and language disorder 04/30/2022 Tobacco user 04/30/2022 Gastritis, unspecified, without bleeding 021 Unspecified abdominal pain 10/13/2020 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 Immunizations Immunization Administration Dates Next Due Influenza High-Dose Quadriva lent Preservative Free IM 05/10/2024(Deferred: Patient Decision) Family History Medical History Relation Comments Deep vein thrombosis Father Thyroid disease Mother Thyroid disease Sister Thyroid cancer Neg Hx Relation Status Comments Father Mother Sister Social History Tobacco Use Types Packs/Day Years Used Date Smoking Tobacco: Former Cigarettes 2 2020 Smokeless Tobacco: Never Tobacco Cessation:Counseling Given: Not Answered Comments:pt stated (05/28/2022) he quit somoking month ago Alcohol Use [...] not to disclose 2017 10:41 PM EDT Last Filed Vital Signs Vital Sign Reading Time Taken Comments Blood Pressure 145/90 03/07/2025 2:53 PM EDT Rushed from main campus Pulse 102 03/07/2025 2:53 PM EDT Rushed from [facility] Temperature 36.2 C (97.2 F) 04/07/2023 9:40 PM EDT Respiratory Rate 22 04/07/2023 9:40 PM EDT Oxygen Saturation 100% 03/07/2025 2:5 3 PM EDT Inhaled Oxygen Concentration - - Weight 131.9 kg (290 lb 12.8 oz) 03/07/2025 2:53 PM EDT Height 166.1 cm (5' 5.39 ) 03/07/2025 2 :53 PM EDT Body Mass Index 47.81 03/07/2025 2:53 PM EDT Plan of Treatment Upcoming Encounters Date Type Department Care Team (Late st Contact Info) Description 03/09/2025 Procedure Pass [facility] Radiology [address] [place] [address] 06/28/2025 2:40 PM EST Office Visit [address] [address] Misa Munoz MD [facility] [place] [address] [email or web address] 12/26/2025 2:15 PM EDT Appointment [facility] Radiology [address] [place] [address] Clary Fernandez MD [address] [place] [address] [email or web address] 12/26/2025 3:00 PM EDT Appointment [facility] Radiology [address] [place] [address] Clary Fernandez MD [address] [place] [address] [email or web address] 12/26/2025 4:20 PM EDT Office Visit [facility] Endocrine, Diabetes, and Hypertension [address] [place] [address] Clary Fernandez MD [address] [place] [address] [email or web address] Health Maintenance Due Date Last Done Comments IPV VACCINES (2 of 3 - 4-dose series) 11/18/1995 10/21/1995 SMOKING Hx and SMOKELESS TOBACCO SCREENING 02/02/2004 HEPATITIS C SCREENING 2009 HIV ONE-TIME SCREENING (18-65 YEARS) 2009 PNEUMOCOCCAL VACCINES (0-49 years) (1 of 2 - PCV) 2010 LIPID PANEL 08/31/2014 08/31/2013 INFLUENZA VACCINE (#1) 2025 9, 04/30/2017, 05/02/2016, Additional history exists COVID-19 VACCINE ( season) 2025 08/01/2021, 01/19/2021, 11/30/2020 DEPRESSION SCREENING 03/07/2026 03/07/2025 TSH LEVEL 03/07/2026 03/07/2025, 10/0 08/2023, 04/07/2023, Additional history exists Adult Td,Tdap Booster 01/22/2032 01/21/2022 , 04/10/2010, 03/22/2003 MENINGOCOCCAL VACCINES (ACWY) Completed 04/26/2008 HEPATITIS A VACCINES Aged Out No long er eligible based on patient's age to complete this topic HIB VACCINES Aged Out No longer eligi ble based on patient's age to complete this topic MENINGOCOCCAL VACCINES (B) Aged Out N o longer eligible based on patient's age to complete this topic Medical Devices Not on file Procedures Procedure Name Priority Date/Time Associated Diagnosis Comments THYROID STIMULATING HORMONE (TSH) Routine 03/07/2025 3:30 PM EDT Thyroid cancer from Last 3 Months or Most Recently Relevant to Health Maintenance Results * (ABNORMAL) TSH (03/07/2025 3:30 PM EDT) TSH 7.78(H) 0.50 - 5.70 uIU/mL [facility] Blood 03/07/2025 3:30 PM EDT 03/07/2025 7:06 PM EDT us Clary Fernandez MD LAB BLOOD BKR ORDERABLES Final R esult [facility] [address] [place] [address] from Last 3 Months or Most Recently Relevant to Health Maintenance Care Teams Primary Substance Abuse Counselor Relationship Specialty Start Date End Date Pcp, Unknown PCP - General 05/09/25 Additional Source Comments The information contained in this document represents components of the legal health record. It is not the complete legal health record.[facility]
--- OUTSIDE RECORDS SUMMARY | 2025-06-17 04:43 | XMS_ITS | Encounter Summary ---
Author Organization [facility] Address [address] [place] [address] Phone Care Team Providers Care Clinical Haematologist Name Role Phone Song Woodard MD Primary Care Provider [phone] [phone] Jacinta Childers MD Primary Care Provider [phone] -[phone] Pcp, Unknown Primary Care Provider Unavailabl e Encounter Details Date Type Department Care Team (Late st Contact Info) Description 01/09/2023 Procedure Pass [facility] Radiology [address] [place] [address] Social History Tobacco Use Types Packs/Day Years [...] st Contact Info) Description 03/09/2025 Procedure Pass [facility] Radiology [address] [place] [address] 06/28/2025 2:40 PM EST Office Visit [facility]- [address] [address] Misa Munoz MD [address] [place] [address] [email or web address] 12/26/2025 2:15 PM EDT Appointment [facility] Radiology [address] [place] [address] Clary Fernandez MD [address] [place] [address] [email or web address] 12/26/2025 3:00 PM EDT Appointment [facility] Radiology [address] [place] [address] Clary Fernandez MD [address] [place] [address] [email or web address] 12/26/2025 4:20 PM EDT Office Visit [facility] Endocrine, Diabetes, and Hypertension [address] [place] [address] [address] [place] [address] Clary Fernandez MD [address] [place] [address] [email or web address] documented as of this encounter Visit Diagnoses Not on filedocumented in this encounter Additional Health Concerns Assessment Noted Time PHQ-2 Depression Total Score: 2 11/18/19 23 10:18 AM EDT documented as of this encounter Care Teams Clinical Haematologist Relationship Specialty Start Date End Date Song Woodard MD [address] [place] [address] PCP - General Internal Medicine 07/21/18 04/05/23 Jacinta Childers MD [address] [place] [address] [email or web address] PCP - General Internal Medicine 04/06/23 05/08/25 Pcp, Unknown PCP - General 05/09/25 documented as of this encounter Additional Source Comments The information contained in this document represents components of the legal health record. It is not the complete legal health record.[facility]
--- OUTSIDE RECORDS SUMMARY | 2025-06-17 04:43 | XMS_ITS | Encounter Summary ---
Author Organization [facility] Address [address] [place] [address] Phone Care Team Providers Care Travel Guide Name Role Phone Song Woodard MD Primary Care Provider [phone] Jacinta Chiledrs MD Primary Care Provider [phone] -[phone] Pcp, Unknown Primary Care Provider Unavailabl e Encounter Details Date Type Department Care Team (Late st Contact Info) Description 11/27/2022 Procedure Pass [facility], Ct Scan - [facility] [address] [place] [address] Social History Tobacco Use Types Packs/Day Years [...] Date of Assessment Author No Risk Indicated 11/27/2022 5:50 PM EDT Ita Sánchez, RN * [place] Suicide Severity Rating Scale (Screener/Recent Self-Report) Question Answer Date of Assessment Author 1. Wish to be (Past 1 Month) No 023 5:50 PM EDT Ita Santana, RN 2. Non-Specific Active Suici sarah Thoughts (Past 1 Month) No 11/27/2022 5:50 PM EDT Ita Santana, RN 6. Suicidal Behavior (Lifetime) No 5:50 PM EDT Ita Santana, RN documented as of this encounter Plan of Treatment Upcoming Encounters Date Type Department Care Team (Late st Contact Info) Description 03/09/2025 Procedure Pass [facility] Radiology [address] [place] [address] 06/28/2025 2:40 PM EST Office Visit [facility]- Gastroenterology [address] [address] Misa Munoz MD [address] [place] [address] [email or web address] 12/26/2025 2:15 PM EDT Appointment [facility] Radiology [address] [place] [address] Clary Fernandez MD [address] [place] [address] [email or web address] 12/26/2025 3:00 PM EDT Appointment [facility] Radiology [address] [place] [address] Clary Fernandez MD [address] [place] [address] [email or web address] 12/26/2025 4:20 PM EDT Office Visit [facility] Endocrine, Diabetes, and Hypertension [address] [place] [address] Clary Fernandez MD [address] [place] [address] [email or web address] documented as of this encounter Visit Diagnoses Not on filedocumented in this encounter Additional Health Concerns Assessment Noted Time PHQ-2 Depression Total Score: 2 11/18/19 23 10:18 AM EDT documented as of this encounter Care Teams Travel Guide Relationship Specialty Start Date End Date Song Woodard MD [address] [place] [address] PCP - General Internal Medicine 07/21/18 04/05/23 Jacinta Childers MD [address] [place] [address] [email or web address] PCP - General Internal Medicine 04/06/23 05/08/25 Pcp, Unknown PCP - General 05/09/25 documented as of this encounter Additional Source Comments The information contained in this document represents components of the legal health record. It is not the complete legal health record.[facility]
--- OUTSIDE RECORDS SUMMARY | 2025-06-17 04:43 | XMS_ITS | Encounter Summary ---
Author Organization [facility] Address [address] [place] [address] Phone Care Team Providers Care Nuclear Control Operator Name Role Phone Song Woodard MD Primary Care Provider [phone] Jacinta Childers MD Primary Care Provider [phone] Pcp, Unknown Primary Care Provider Unavailabl e Encounter Details Date Type Department Care Team (Late st Contact Info) Description 01/09/2023 Procedure Pass [facility] Radiology [address] [place] [address] Social History Tobacco Use Types Packs/Day Years [...] st Contact Info) Description 03/09/2025 Procedure Pass [facility] Radiology [address] [place] [address] 06/28/2025 2:40 PM EST Office Visit [facility]- [address] [address] Misa Munoz MD [address] [place] [address] [email or web address] 12/26/2025 2:15 PM EDT Appointment [facility] Radiology [address] [place] [address] Clary Fernandez MD [address] [place] [address] [email or web address] 12/26/2025 3:00 PM EDT Appointment [facility] Radiology [address] [place] [address] Clary Fernandez MD [address] [place] [address] [email or web address] 12/26/2025 4:20 PM EDT Office Visit [facility] Endocrine, Diabetes, and Hypertension [address] [place] [address] [address] [place] [address] Clary Fernandez MD [address] [place] [address] [email or web address] documented as of this encounter Visit Diagnoses Not on filedocumented in this encounter Additional Health Concerns Assessment Noted Time PHQ-2 Depression Total Score: 2 11/18/19 23 10:18 AM EDT documented as of this encounter Care Teams Nuclear Control Operator Relationship Specialty Start Date End Date Song Woodard MD [address] [place] [address] PCP - General Internal Medicine 07/21/18 04/05/23 Jacinta Childers MD [address] [place] [address] [email or web address] PCP - General Internal Medicine 04/06/23 05/08/25 Pcp, Unknown PCP - General 05/09/25 documented as of this encounter Additional Source Comments The information contained in this document represents components of the legal health record. It is not the complete legal health record.[facility]
--- OUTSIDE RECORDS SUMMARY | 2025-06-17 04:43 | XMS_ITS | Encounter Summary ---
Author Organization [facility] Address [address] [facility] [address] [place] [address] Phone Care Team Providers Care Cloth Mender Name Role Phone Song Woodard MD Primary Care Provider [phone] Jacinta Childers MD Primary Care Provider [phone] Pcp, Unknown Primary Care Provider Unavailabl e Encounter Details Date Type Department Care Team (Late st Contact Info) Description 05/09/2022 Procedure Pass [facility] Periop 1st floor [address] [place] [address] Social History Tobacco Use Types Packs/Day Years Used Date Smoking Tobacco: Some Days Cigarettes Smokeless Tobacco: Never Comments:social smoker 0-2 c igs daily Alcohol Use Standard Drinks/Week Comments Yes 0 [...] Date of Assessment Author No Risk Indicated 05/09/2022 9:14 PM EDT Kira Castro RN * [place] Suicide Severity Rating Scale (Screener/Recent Self-Report) Question Answer Date of Assessment Author 1. Wish to be (Past 1 Month) No 022 9:14 PM EDT Kira Stephens RN 2. Non-Specific Active Suici sarah Thoughts (Past 1 Month) No 05/09/2022 9:14 PM EDT Alexa Stephens RN 6. Suicidal Behavior (Lifetime) No 9:14 PM EDT Kira Stephens RN documented as of this encounter Plan of Treatment Upcoming Encounters Date Type Department Care Team (Late st Contact Info) Description 03/09/2025 Procedure Pass [facility] Radiology [address] [place] [address] 06/28/2025 2:40 PM EST Office Visit [facility]- Gastroenterology [address] [address] Misa Munoz MD [address] [place] [address] [email or web address] 12/26/2025 2:15 PM EDT Appointment [facility] Radiology [address] [place] [address] Clary Fernandez MD [address] [place] [address] [email or web address] 12/26/2025 3:00 PM EDT Appointment [facility] Radiology [address] [place] [address] Clary Fernandez MD [address] [place] [address] [email or web address] 12/26/2025 4:20 PM EDT Office Visit [facility] Endocrine, Diabetes, and Hypertension [address] [place] [address] [address] [place] [address] Clary Fernandez MD [address] [place] [address] [email or web address] documented as of this encounter Visit Diagnoses Not on filedocumented in this encounter Additional Health Concerns Infection Onset Date Last Indicated Resolved Time CoV-Risk 09/21/2022 09/21/2022 10/02/2022 1:25 AM EST COVID-19 10/24/2022 10/24/2022 11/14/2022 1:21 AM EDT documented as of this encounter Care Teams Cloth Mender Relationship Specialty Start Date End Date Song Woodard MD [facility] [address] PCP - General Internal Medicine 07/21/18 04/05/23 Jacinta Childers MD [address] [place] [address] [email or web address] PCP - General Internal Medicine 04/06/23 05/08/25 Pcp, Unknown PCP - General 05/09/25 documented as of this encounter Additional Source Comments The information contained in this document represents components of the legal health record. It is not the complete legal health record.[facility]
--- OUTSIDE RECORDS SUMMARY | 2025-06-17 04:43 | XMS_ITS | Encounter Summary ---
Author Organization [facility] Address [address] [place] [address] Phone Care Team Providers Care Weigher Operator Name Role Phone Jacinta Childers MD Primary Care Provider [phone] Pcp, Unknown Primary Care Provider Unavailabl e Encounter Details Date Type Department Care Team (Late st Contact Info) Description 07/15/2024 Procedure Pass [facility], Ct Scan - [facility] [address] [place] [address] Social History Tobacco Use Types Packs/Day Years [...] st Contact Info) Description 03/09/2025 Procedure Pass [facility] Radiology [address] [place] [address] 06/28/2025 2:40 PM EST Office Visit [facility]- Gastroenterology [address] [address] Misa Munoz MD [address] [place] [address] [email or web address] 12/26/2025 2:15 PM EDT Appointment [facility] Radiology [address] [place] [address] Clary Fernandez MD [address] [place] [address] [email or web address] 12/26/2025 3:00 PM EDT Appointment [facility] Radiology [address] [place] [address] Clary Fernandez MD [address] [place] [address] [email or web address] 12/26/2025 4:20 PM EDT Office Visit [facility] Endocrine, Diabetes, and Hypertension [address] [place] [address] [address] [place] [address] Clary Fernandez MD [address] [place] [address] [email or web address] documented as of this encounter Visit Diagnoses Not on filedocumented in this encounter Additional Health Concerns Assessment Noted Time PHQ-2 Depression Total Score: 6 05/10/20 24 10:01 AM EDT documented as of this encounter Care Teams Weigher Operator Relationship Specialty Start Date End Date Jacinta Childers MD [address] [place] [address] [email or web address] PCP - General Internal Medicine 04/06/23 05/08/25 Pcp, Unknown PCP - General 05/09/25 documented as of this encounter Additional Source Comments The information contained in this document represents components of the legal health record. It is not the complete legal health record.[facility]
--- OUTSIDE RECORDS SUMMARY | 2025-06-17 04:43 | XMS_ITS | Clinical Summary ---
Author Organization [facility] Address [address] [place] [address] Care Team Providers Care Online Editor Name Role Phone Song Woodard MD Primary Care Provider [phone] Allergies Active Allergy Reactions Criticality Noted Date Comments Azithromycin Rash Low 04/28/2022 Rash Clonidine 11/27/2022 Esomeprazole Nausea And Vomiting,Other (See Comments),Rash Medium 08/28/2010 Other reaction(s): ulcers Increased ulcers Gastric Ulcers Omeprazole Nausea And Vomiting,Swelling,Rash Low 08/28/2010 Increased ulcers Gastric Ulcer Medications Medication Sig Dispensed Refills Start Date End Date Status meclizine (ANTIVERT) 50 MG tablet Take 0.5 tablets (25 mg total) by mouth 3 (three) times a day as needed for dizziness for up to 15 doses. 15 tablet 0 02/03/2024 Active Active Problems No known active problems Social History Tobacco Use Types Packs/Day Years Used Date Smoking Tobacco: Never Smokeless Tobacco: Never Alcohol Use Standard Drinks/Week Comments Yes 0 (1 standard drink = 0.6 oz pur e alcohol) Social Sex and Gender Information Value Date Recorded Sex Assigned at Male 02/03/2024 5:54 PM EDT Gender Identity Not on file Sexual Orientation Not on file Job Start Date Occupation Industry Not on file Not on file Not on file Last Filed Vital Signs Vital Sign Reading Time Taken Comments Blood Pressure 134/72 02/03/2024 5:50 PM EDT Pulse 92 02/03/2024 5:50 PM EDT Temperature 36.8 C (98.2 F) 02/03/2024 5:50 PM EDT Respiratory Rate 18 02/03/2024 5:50 PM EDT Oxygen Saturation 98% 02/03/2024 5:50 PM EDT Inhaled Oxygen Concentration - - Weight 113.4 kg (250 lb) 02/03/2024 5:50 PM EDT Height 167.6 cm (5' 6 ) 02/03/2024 5:50 PM EDT Body Mass Index 40.35 02/03/2024 5:50 PM EDT Plan of Treatment Health Maintenance Due Date Last Done Comments Hepatitis C Screening 1991 Depression Screening 2003 Preventative Health Evaluation 2009 DTap / Tdap / Td (3 - Tdap) 01/22/202201/08, 04/10/2010, 03/22/2003, Additional history exists COVID-19 Vaccine ( season) 2025 08/01/2021, 01/19/2021, 11/30/2020 Influenza Vaccine (#1) 2025 9, 04/30/2017, 05/02/2016, Additional history exists Hepatitis B Vaccines Completed 07/14/2002, 04/15/2002, 03/14/2002 Pneumococcal Vaccine Aged Out No long er eligible based on patient's age to complete this topic RSV Ped < 20 months Aged Out No longe r eligible based on patient's age to complete this topic Care Teams Online Editor Relationship Specialty Start Date End Date Song Woodard MD [address] [place] [address] PCP - General Legal Entity Controller 03/03/22
--- OUTSIDE RECORDS SUMMARY | 2025-06-17 04:43 | XMS_ITS | Encounter Summary ---
Author Organization [facility] Address [address] [place] [address] [place] [address] Phone Care Team Providers Care Head Loft Worker Name Role Phone Song Woodard MD Primary Care Provider [phone] Jacinta Childers MD Primary Care Provider [phone] Pcp, Unknown Primary Care Provider Unavailabl e Encounter Details Date Type Department Care Team (Late st Contact Info) Description 04/28/2022 Procedure Pass [facility], Ct Scan - [facility] [address] [place] [address] Social History Tobacco Use Types Packs/Day Years [...] Date of Assessment Author No Risk Indicated 04/28/2022 8:30 PM EDT Jonna Craft RN * [place] Suicide Severity Rating Scale (Screener/Recent Self-Report) Question Answer Date of Assessment Author 1. Wish to be (Past 1 Month) No 022 8:30 PM EDT Jonna Craft, STACEY 2. Non-Specific Active Suici sarah Thoughts (Past 1 Month) No 04/28/2022 8:30 PM EDT Siddharth Craft RN 6. Suicidal Behavior (Lifetime) No 8:30 PM EDT Jonna Craft, RN documented as of this encounter Plan of Treatment Upcoming Encounters Date Type Department Care Team (Late st Contact Info) Description 03/09/2025 Procedure Pass [facility] Radiology [address] [place] [address] 06/28/2025 2:40 PM EST Office Visit [facility]- Gastroenterology [address] [address] Misa Munoz MD [address] [place] [address] [email or web address] 12/26/2025 2:15 PM EDT Appointment [facility] Radiology [address] [place] [address] Clary Fernandez MD [address] [place] [address] [email or web address] 12/26/2025 3:00 PM EDT Appointment [facility] Radiology [address] [place] [address] Clary Fernandez MD [address] [place] [address] [email or web address] 12/26/2025 4:20 PM EDT Office Visit [facility] Endocrine, Diabetes, and Hypertension [address] [place] [address] [address] [place] [address] Clary Fernandez MD [address] [place] [address] [email or web address] documented as of this encounter Visit Diagnoses Not on filedocumented in this encounter Additional Health Concerns Infection Onset Date Last Indicated Resolved Time CoV-Risk 09/21/2022 09/21/2022 10/02/2022 1:25 AM EST COVID-19 10/24/2022 10/24/2022 11/14/2022 1:21 AM EDT documented as of this encounter Care Teams Head Loft Worker Relationship Specialty Start Date End Date Song Woodard MD [address] [address] PCP - General Internal Medicine 07/21/18 04/05/23 Jacinta Childers MD [address] [place] [address] [email or web address] PCP - General Internal Medicine 04/06/23 05/08/25 Pcp, Unknown PCP - General 05/09/25 documented as of this encounter Additional Source Comments The information contained in this document represents components of the legal health record. It is not the complete legal health record.[facility]
--- OUTSIDE RECORDS SUMMARY | 2025-06-17 04:43 | XMS_ITS | Encounter Summary ---
Author Organization [facility] Address [address] [facility] [place] [address] Phone Care Team Providers Care Display Artist Name Role Phone Song Woodard MD Primary Care Provider [phone] Jacinta Childers MD Primary Care Provider [phone] Pcp, Unknown Primary Care Provider Unavailabl e Encounter Details Date Type Department Care Team (Late st Contact Info) Description 09/21/2022 Procedure Pass [facility], Ct Scan - [facility] [address] [place] [address] Social History Tobacco Use Types Packs/Day Years [...] Date of Assessment Author No Risk Indicated 09/21/2022 7:15 PM Sasha Trejo, STACEY * [place] Suicide Severity Rating Scale (Screener/Recent Self-Report) Question Answer Date of Assessment Author 1. Wish to be (Past 1 Month) No 02/12/2 023 7:15 PM Sasha Trejo RN 2. Non-Specific Active Suici sarah Thoughts (Past 1 Month) No 09/21/2022 7:15 PM Sasha Trejo RN 6. Suicidal Behavior (Lifetime) No 7:15 PM Sasha Trejo, STACEY documented as of this encounter Plan of Treatment Upcoming Encounters Date Type Department Care Team (Late st Contact Info) Description 03/09/2025 Procedure Pass [facility] Radiology [address] [place] [address] 06/28/2025 2:40 PM EST Office Visit [facility]- Gastroenterology [address] [address] Misa Munoz MD [address] [place] [address] [email or web address] 12/26/2025 2:15 PM EDT Appointment [facility] Radiology [address] [place] [address] Clary Fernandez MD [address] [place] [address] [email or web address] 12/26/2025 3:00 PM EDT Appointment [facility] Radiology [address] [place] [address] Clary Fernandez MD [address] [place] [address] [email or web address] 12/26/2025 4:20 PM EDT Office Visit [facility] Endocrine, Diabetes, and Hypertension [address] [place] [address] [address] [place] [address] Clary Fernandez MD [address] [place] [address] [email or web address] documented as of this encounter Visit Diagnoses Not on filedocumented in this encounter Additional Health Concerns Infection Onset Date Last Indicated Resolved Time CoV-Risk 09/21/2022 09/21/2022 10/02/2022 1:25 AM EST COVID-19 10/24/2022 10/24/2022 11/14/2022 1:21 AM EDT documented as of this encounter Care Teams Display Artist Relationship Specialty Start Date End Date Song Woodard MD [address] [place] [address] PCP - General Internal Medicine 07/21/18 04/05/23 Jacinta Childers MD [address] [place] [address] [email or web address] PCP - General Internal Medicine 04/06/23 05/08/25 Pcp, Unknown PCP - General 05/09/25 documented as of this encounter Additional Source Comments The information contained in this document represents components of the legal health record. It is not the complete legal health record.[facility]
--- OUTSIDE RECORDS SUMMARY | 2025-06-17 04:43 | XMS_ITS | Clinical Summary ---
Author Organization [facility] Address [address] [place] [address] Phone Care Team Providers Care Handbook Writer Name Role Phone Song Woodard MD Primary Care Provider [phone] Allergies Active Allergy Reactions Criticality Noted Date Comments Esomeprazole Magnesium Other 08/28/2010 Omeprazole Magnesium 08/28/2010 Other Reaction(s): Rash/Dermatitis Medications loperamide (IMODIUM A-D) 2 mg tablet Take 1 Tab by mouth 4 times daily as needed for Diarrhea. Active ALPRAZolam (XANAX) 1 mg tablet Take 1 tablet (1 mg total) by mouth 3 (three) times a day if needed for anxiety. Active busPIRone (BUSPAR) 15 mg tablet Take 1 tablet (15 mg total) by mouth. 5 Active escitalopram (LEXAPRO) 10 mg tablet Take 1 tablet (10 mg total) by mouth 1 (one) time each day. 4 Active levothyroxine (SYNTHROID, LEVOTHROID) 200 mcg tablet Take 1 tablet (200 mcg total) by mouth daily. 4 Active ondansetron ODT (ZOFRAN-ODT) 4 mg disintegrating tablet Dissolve 1 tablet (4 mg total) on top of the tongue every 8 (eight) hours if needed. 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 Per patient, his sister called prior derm to say he was acting weird ([facility]) and he was taken off the med about mid- 2008 - pt denies any mental changes and sts sister is pathologic liar Chronic diarrhea 08/28/2010 Overview (10/10/2024): EGD/colo done 06/18 ([facility]) normal. Apparently had stomach ulcer approx 2003 or so Depression with anxiety 08/28/2010 Overview (10/10/2024): Sees counselor Adan Frank (?) at [facility]; various meds in the past caused side effects. Overweight 08/28/2010 Stuttering 08/28/2010 Overview (10/10/2024): Muscle biopsy, mitochondrial DNA, amino acids, organic acids, fragile X, all normal Immunizations Immunization Administration Dates Next Due DTP 10/21/1995 Hepatitis B Pediatric (Enger ix B; Recombivax HB) to less than 20 yo 07/14/2002,04/15/2002,03/14/2002 Meningococcal MCV4P 04/26/2008 OPV 10/21/1995 Pfizer SARS-CoV-2 COVID-19, mRNA, LNP-S, preservative free 08/01/2021,01/19/2021,11/30/2020 Td Tetanus diptheria (Tdvax) 7yo and older 03/22 Social History Tobacco Use Types Packs/Day Years Used Date Smoking Tobacco: Never Smokeless Tobacco: Never Tobacco Cessation:Counseling Given: Not Answered Alcohol Use Standard Drinks/Week Comments Yes 0 (1 standard drink = 0.6 oz pur e alcohol) Sex and Gender Information Value Date Recorded Sex Assigned at Not on file Legal Sex Male 11:51 AM EST Gender Identity Not on file Sexual Orientation Not on file Obstetrics History Last Filed Vital Signs Vital Sign Reading Time Taken Comments Blood Pressure 148/89 11/28/2024 1:07 PM EDT Pulse 86 11/28/2024 1:07 PM EDT Temperature 35.9 C (96.6 F) 11/28/2024 1:07 PM EDT Respiratory Rate - - Oxygen Saturation 99% 11/28/2024 1:07 PM EDT Inhaled Oxygen Concentration - - Weight 140 kg (309 lb) 11/28/2024 1:07 PM EDT Height 167.6 cm (5' 6 ) 11/03/2024 11:03 AM EDT Body Mass Index 49.87 11/03/2024 11:03 AM EDT Plan of Treatment Health Maintenance Due Date Last Done Comments IPV Vaccines (2 of 3 - 4-dose series) 11/18/1995 10/21/1995 Hepatitis A Vaccines (1 of 2 - Risk 2-dose series) 2010 HPV Vaccines (1 - 3-dose SCDM series) 2018 Cholesterol Screening (Lipid Panel) 07/08/2022 08/31/2013 Social Influencers of Health Screening 07/08/2022 Depression Screening 08/10/2024 COVID-19 Vaccine ( - 2024- season) 2025 08/01/2021, 01/19/2021, 11/30/2020 Influenza Vaccine (#1) 2025 9, 04/30/2017, 05/02/2016, Additional history exists DTaP,Tdap,and Td Vaccines (5 - Td or Tdap) 01/22/2032 01/21/2022, 04/10/2010, 03/22/2003, Additional history exists RSV Immunization Adult Patients (1 - 1-dose 75+ series) 2066 Hepatitis B Vaccines Completed 07/14/2002, 04/15/2002, 03/14/2002 Meningococcal ACWY Vaccine Completed 04/26/2008 HIV Screening Completed 08/31/2013 Hepatitis C Screening Completed 08/31/2013 HIB Vaccines Aged Out No longer eligi ble based on patient's age to complete this topic MMR Vaccines Aged Out No longer eligi ble based on patient's age to complete this topic Meningococcal B Vaccine Aged Out No l onger eligible based on patient's age to complete this topic Pneumococcal Vaccine: Pediatrics (0 to 5 Years) and At-Risk Patients (6 to 49 Years) Aged Out No longer eligible based on patient's age to complete this topic RSV Immunization Patients Under 20 months Aged Out No longer eligible based on patient's age to complete this topic Varicella Vaccines Aged Out No longer eligible based on patient's age to complete this topic Procedures Procedure Name Priority Date/Time Associated Diagnosis Comments HEPATITIS C SCREENING Routine 08/31/2013 HIV SCREENING Routine 08/31/2013 LIPID PANEL Routine 08/31/2013 from Last 3 Months or Most Recently Relevant to Health Maintenance Results * HIV Screening (08/31/2013) HIV Screening Abstracted [facility] Provider HEALTH MAINTENANCE Final Result * Hepatitis C Screening (08/31/2013) Hepatitis C Screening abstracted [facility] Provider HEALTH MAINTENANCE Final Result * Lipid panel (08/31/2013) LDL/HDL Ratio 2 0 - 4 Triglycerides 123 0 - 150 mg/dL Cholesterol 196 0 - 200 mg/dL HDL 83 >=40 mg/dL LDL Cholesterol 89 0 - 100 mg/dL Blood Venous blood specimen / Unknown [facility] Provider LAB BLOOD ORDERABLES Daksha l Result from Last 3 Months or Most Recently Relevant to Health Maintenance Insurance [place] [facility] Care Teams Handbook Writer Relationship Specialty Start Date End Date Song Woodard MD [address] [place] [address] PCP - General 03/03/22
--- NOTE | 2025-06-17 05:21 | ED_ITS ---
HPI - General Adult General Chief complaint: General Medical Stated complaint: fatigued, nauseous Time Seen by Provider: 06/17/25 05:21 History of Present Illness ED Provider: Hector PARIKH narrative: The patient is a 35-year-old male with a history of thyroid cancer which has been treated with surgery and radiation therapy. He is on thyroid replacement hormone. I believe he has received most of his thyroid cancer care at [facility] in [place]. He also has a history of behavioral health problems that include mood disorder NOS, generalized anxiety disorder, major depression, and a history of opiate dependence. He also has a history of a tic disorder and significant dysarthria from some kind of cerebral dysfunction. The patient says that for the last week or so he has been feeling profoundly fatigued. He has been worried that something might be wrong with him and he has become more and more anxious about his health. He says that he has a feeling that his lymph nodes are swollen in his neck and in his armpits and in his groins although he says he cannot feel any discrete swelling. Early this morning he finally decided to drive to the hospital to get evaluated because of this anxiety about his health and his sense of fatigue. He does not think he has had any fevers. The patient says that he does not have a primary care doctor. He says that he has been getting prescriptions for ondansetron from his thyroid cancer doctors in [place]. He says that he also has a prescription for alprazolam which he gets from the [facility] in [place]. Related Data Previous Rx's ?Medication ?Instructions ?Recorded doxycycline hyclate 100 mg capsule 100 mg PO BID 7 day s #14 caps 08/21/20 cyclobenzaprine 5 mg tablet 5 mg PO Q8H PRN pain (scal e score 01/18/22 7-10) 5 days #14 tabs hydrocodone 5 mg-acetaminophen 325 1 tab PO Q8H PRN pa in, severe 3 01/18/22 mg tablet days #5 tabs lidocaine 5 % topical patch 1 patch topical DAILY PRN pain #30 01/18/22 (Lidoderm) ea naproxen 500 mg tablet 500 mg PO BID PRN pain 10 da ys #20 01/18/22 tabs hydrocodone 5 mg-acetaminophen 325 1 tab PO Q6H PRN pa in #8 tabs 03/01/22 mg tablet naproxen 500 mg tablet (Naprosyn) 500 mg PO BID PRN pa in #14 tabs 01/06/23 doxycycline hyclate 100 mg capsule 100 mg PO BID 10 da ys #20 caps 01/31/25 oxycodone 10 mg tablet 10 mg PO BID PRN severe pain 01/31/25 (scale score 7-10) #5 tabs Allergies Allergy/AdvReac Type Severity Reaction Status Date / Time clarithromycin (Prevpac) Allergy Unknown Unknown Verified 06/17/25 04:32 dexamethasone Allergy Unknown Unknown Verified 06/17/25 04:32 esomeprazole (Nexium) Allergy Unknown Unknown Verified 06/17/25 04:32 lansoprazole (Prevpac) Allergy Unknown Unknown Verified 06/17/25 04:32 omeprazole (From PRILOSEC) Allergy Unknown RASH Verified 06/17/25 04:32 Review of Systems 2 Review of Systems: Yes all other systems are reviewed and are negative [facility] Past Medical History Medical History Ear problem Thyroid mass TIA (transient ischemic attack) Social History Social History Alcohol intake: never Patient Tobacco Use Status: Never used Tobacco Advance Directives: No Advance Directives Information Provided: No Do you have a plan to hurt others: No Plan Physical Exam ED Vital Signs: Vital Signs - 24 hr 06/17/25 04:26 06/17/25 06:00 Temperature 98.2 F 98.2 F Pulse Rate 86 90 Respiratory Rate 20 16 Blood Pressure 174/116 H 129/75 Pulse Oximetry 100 97 Oxygen Delivery Method Room Air Room Air BMI result Body Mass Index 48.4 Const Other: The patient is a somewhat unkempt, somewhat chronically ill-appearing 35-year-old. He has a BMI of 48. He clearly has a significant stutter. He looks somewhat chronically ill but does not seem obviously acutely ill. HENMT Other: Face is symmetric, mucous membranes moist Eyes Other: Pupils are round equal, conjunctivae are clear, extraocular movements intact General: appearance normal, both eyes and all related structures Neck Neck: Yes normal visual inspection, Yes full ROM and Yes no lymphadenopathy Resp Effort & Inspection: normal respiratory effort Auscultation: clear to auscultation bilaterally Cardio Rate: regular rate Rhythm: regular rhythm Heart sounds: S1 normal heart sound present and S2 normal heart sound present GI Other: Abdomen is soft and nontender Skin Other: Skin is pale and dry. I palpated the patient has axilla and neck. The patient reported feeling as if he had swollen lymph nodes in these areas but I do not appreciate any lymphadenopathy. Neuro Other: The patient is awake and alert, oriented and appropriate. He clearly has a stutter which makes his speech choppy but he is able to express himself appropriately. Cranial nerves are otherwise intact. He moves his extremities normally and appropriately. Extrem Other: There is no calf swelling or tenderness. No asymmetry. No peripheral edema. Medical Decision Making Medical Decision Making [facility] Narrative: The patient is a 35-year-old male who presents with very nonspecific symptoms of fatigue and weakness and body aches. He also reports feeling a sense of swollen lymph nodes. I do not feel any swollen lymph nodes. He does not appear obviously acutely ill. A high blood pressure reading was taken when he 1st arrived but his vital signs were otherwise normal and his subsequent blood pressure was normal. Clinically I do not have a very high suspicion for any dangerous process. His presentation seems more consistent with health anxiety than an actual acute illness. Nevertheless a medical workup was done that included an unremarkable CBC with a white count of 8.0 and a normal differential. A nearly normal C-reactive protein of 0.72. Unremarkable comprehensive metabolic panel. TSH slightly above normal at 6.55. He had a chest x-ray that I felt was normal. He had an EKG that showed normal sinus rhythm at 78 beats per minute. No significant change from previous EKG. I explained to the patient that I thought it was extremely unlikely that he had any dangerous acute process at work. I think the patient looks well enough for discharge. Unfortunately the patient does not have a primary care doctor he says. He was therefore given information about local practices and is encouraged to try to establish a local doctor. He should return if worse. Lab Data 06/17/25 05:58 06/17/25 05:58 Labs: Lab Results 06/17/25 06/17/25 Range/Units 05:55 05:58 WBC 8.0 (4.8-10.8) X10*3/uL RBC 4.93 (4.60-5.80) X10*6/uL Hgb 13.6 L (14.0-18.0) g/dl Hct 40.4 L (42.0-52.0) % MCV 81.9 (80.0-98.0) fL MCH 27.6 (27.0-33.0) pg MCHC 33.7 (31.0-36.0) g/dl RDW 13.9 (11.0-16.0) % Plt Count 291 (160-400) X10*3/uL MPV 8.3 L (9.4-12.4) fL Immature Gran % (Auto) 0.3 (0.0-0.4) % Neut % (Auto) 55.1 (45-73) % Lymph % (Auto) 35.4 (20-40) % [place] % (Auto) 5.3 (2-11) % Eos % (Auto) 3.0 (0-4) % Baso % (Auto) 0.9 (0-2) % Lymph # (Auto) 2.8 (1.2-4.9) X10*3/uL [place] # (Auto) 0.4 (0.1-1.2) X10*3/uL Eos # (Auto) 0.2 (0.0-0.4) X10*3/uL Baso # (Auto) 0.1 (0.0-0.2) X10*3/uL Abs Immat Gran (auto) 0.02 (0.00-0.03) X10*3/uL Absolute Neuts (auto) 4.4 (2.0-8.3) x10*3/uL Absolute Nucleated RBC 0.000 (0.0-0.012) X10*3/uL Nucleated RBC % (auto) 0.0 (0.0-0.2) /100WBC Sodium 140 (135-145) mmol/L Potassium 3.6 (3.3-5.1) mmol/L Chloride 103 (96-108) mmol/L Carbon Dioxide 29 (22-29) mmol/L Anion Gap 12 (12-20) BUN 7 L (9-16) mg/dL Creatinine 0.93 (0.5-1.4) mg/dL Estim Creat Clear Calc 146.7 Estimated GFR > 60 Random Glucose 108 (60-115) mg/dL Calcium 9.0 (8.4-10.2) mg/dL Total Bilirubin 0.2 (0.0-1.0) mg/dL Direct Bilirubin < 0.2 (0.0-0.5) mg/dL AST 32 (5-37) U/L ALT 25 (0-40) U/L Alkaline Phosphatase 73 (39-117) U/L C-Reactive Protein 0.72 H (< or = 0.50) mg/dL Total Protein 6.9 (6.5-8.0) g/dL Albumin 4.1 (3.5-5.0) g/dL TSH 6.55 H (0.32-4.0) uIU/mL Influenza Type A (PCR) NEGATIVE (Negative) Influenza Type B (PCR) NEGATIVE (Negative) RSV RNA Qual (PCR) NEGATIVE (Negative) SARS-CoV-2 RNA (RT-PCR) NEGATIVE (Negative) Independent Interpretation I performed an independent interpretation of an: EKG Interpretation: EKG at 05:38 shows normal sinus rhythm at 78 beats per minute. There are nonspecific ST changes similar to previous EKGs. Overall this is a nonischemic EKG with no significant change from previous. Discharge Plan Discharge Clinical Impression: Fatigue, Body aches Patient Disposition: Home, Self-Care Additional Instructions: Your testing in the emergency room today seems very reassuring. I do not feel there are any significant abnormalities on your blood testing. You have tested negative for COVID, influenza, and RSV. You may have some other kind of viral infection. Please continue your regular medications. I think it would be very good for you to try to get a regular primary care doctor. You has been given the contact information for several local primary care offices. Please call to try to get an appointment set up, even if it is far in the future. Return to the emergency room if significantly worse. Prescriptions: No Action doxycycline hyclate 100 mg capsule 100 mg PO BID 7 Days Qty: 14 0RF hydrocodone-acetaminophen 5-325 mg tablet 1 tab PO Q8H PRN (Reason: pain, severe) 3 Days Qty: 5 0RF Rx Instructions: Partial Fill upon patient request. lidocaine [Lidoderm] 5 % adhesive patch,medicated 1 patch topical DAILY MDD remove after 12 hours PRN (Reason: pain) Qty: 30 0RF Rx Instructions: leave on most painful area for up to 12 hrs naproxen 500 mg tablet 500 mg PO BID PRN (Reason: pain) 10 Days Qty: 20 0RF cyclobenzaprine 5 mg tablet 5 mg PO Q8H PRN (Reason: pain (scale score 7-10)) 5 Days Qty: 14 0RF hydrocodone-acetaminophen 5-325 mg tablet 1 tab PO Q6H PRN (Reason: pain) Qty: 8 0RF Rx Instructions: partial fill okay; Partial Fill upon patient request. doxycycline hyclate 100 mg capsule 100 mg PO BID 10 Days Qty: 20 0RF oxycodone 10 mg tablet 10 mg PO BID PRN (Reason: severe pain (scale score 7-10)) Qty: 5 0RF Rx Instructions: Partial Fill upon patient request. naproxen [Naprosyn] 500 mg tablet 500 mg PO BID PRN (Reason: pain) Qty: 14 0RF Referrals: [facility] [Provider Group] [facility] Primary Care, [place] [Provider Group, Internal Medicine] [facility], [place] [Provider Group, Internal Medicine] [facility] Care, [facility] [Provider Group, Primary Care] [facility] Primary Care, [facility] [Provider Group, Primary Care] Pao Gonzalez MD [Physician, Internal Medicine] Discharge Date/Time: 06/17/25 06:54 Print Language: Frisian
--- NOTE | 2025-06-17 05:35 | ECG_ITS ---
Test Reason : WEAKNESS Blood Pressure : */* mmHG Vent. Rate : 78 BPM Atrial Rate : 78 BPM P-R Int : 118 ms QRS Dur : 82 ms QT Int : 394 ms P-R-T Axes : 28 13 16 degrees QTcB Int : 449 ms Normal sinus rhythm Nonspecific ST abnormality Abnormal ECG When compared with ECG of 06-Jan-2023 19:18, No significant change was found Referred By: Pepe Young Electronically Signed By: Balwinder Zhang
[2025-06-17 06:00] VITALS: BP 129/75; PULSE 90; RESP 16; TEMP 36.8; O2SAT 97
[2025-06-17 06:01] LABS: Hematocrit 40.4 % (42.0-52.0); Hemoglobin 13.6 g/dl (14.0-18.0); Imm Gran Abs Auto 0.02 X10*3/uL (0.00-0.03); Imm Gran Pct Auto 0.3 % (0.0-0.4); Lymphocytes Absolute Auto 2.8 X10*3/uL (1.2-4.9); MANUAL DIFF FLAG NO; Mean Corpuscular HGB Conc 33.7 g/dl (31.0-36.0); Mean Corpuscular Hemoglobin 27.6 pg (27.0-33.0); Mean Corpuscular Volume 81.9 fL (80.0-98.0); NRBC Abs Auto 0.000 X10*3/uL (0.0-0.012); NRBC Pct Auto 0.0 /100WBC (0.0-0.2); Platelet Count 291 X10*3/uL (160-400); Red Blood Count 4.93 X10*6/uL (4.60-5.80); White Blood Count 8.0 X10*3/uL (4.8-10.8)
[2025-06-17 06:26] LABS: Alanine Aminotransferase 25 U/L (0-40); Albumin Level 4.1 g/dL (3.5-5.0); Alkaline Phosphatase 73 U/L (39-117); Anion Gap 12 (12-20); Aspartate Amino Transferase 32 U/L (5-37); Blood Urea Nitrogen 7 mg/dL (9-16); Calcium 9.0 mg/dL (8.4-10.2); Carbon Dioxide 29 mmol/L (22-29); Chloride 103 mmol/L (96-108); Creatinine Clr Calc Pharmacy 146.7; Estimated Glomerular Filt Rate > 60; Potassium 3.6 mmol/L (3.3-5.1); Sodium 140 mmol/L (135-145); Total Protein 6.9 g/dL (6.5-8.0)
[2025-06-17 06:38] LABS: Resp Syncy Virus RNA Qual PCR NEGATIVE (Negative); SARS COV2 PCR INHOUSE NEGATIVE (Negative)
[2025-06-17 06:40] LABS: Thyroid Stimulating Hormone 6.55 uIU/mL (0.32-4.0)
== END 2025-06-17 06:54 | disposition home or self-care (01) ==
PROVIDERS: Emergency Provider Emergency Medicine
DX: R53.83 Other fatigue (principal); R52 Pain, unspecified; Z03.818 Encounter for observation for suspected exposure to other biological agents ruled out; Z85.850 Personal history of malignant neoplasm of thyroid; Z79.890 Hormone replacement therapy
CPT/HCPCS: 71046; 80048; 80076; 84443; 85025; 86140; 87637; 93005; 99283

== ENCOUNTER → 2025-06-17 05:35 | Outpatient (BNV) | payer SELFPAY | PROVIDERS: Emergency Provider Emergency Medicine; Visit Provider Internal Medicine Cardiovascular Disease | DX: R94.31 Abnormal electrocardiogram [ECG] [EKG] (principal); R53.1 Weakness | CPT/HCPCS: 93010 ==

== ENCOUNTER → 2025-06-17 05:35 | Outpatient (BNV) | payer SELFPAY | PROVIDERS: Emergency Provider Emergency Medicine; Visit Provider Radiology Vascular & Interventional Radiology | DX: R53.1 Weakness (principal) | CPT/HCPCS: 71046 ==